=== PATIENT | female | born 1985 | race Two or more races ===

== ENCOUNTER 2023-11-10 17:25 | Emergency (ER) | payer MEDICAID ==
[~2023-11-10] VITALS: Ht 165.1 cm; Wt 62.8 kg
[2023-11-10 19:23] LABS: Basophils # (auto) 0 10 ^3/uL (0-0.2); Basophils % (auto) 0.6 % (0.0-2.0); Eosinophils # (auto) 0.2 10 ^3/uL (0-0.8); Eosinophils % (auto) 4.9 % (0.0-7.0); Hematocrit 43.2 % (36.0-46.0); Hemoglobin 14.4 g/dL (12.2-16.2); Lymphocytes # (auto) 0.9 10 ^3/uL (0.4-5.4); Lymphocytes % (auto) 21.8 % (10.0-50.0); Mean Corpuscular Hemoglobin 29.9 pg (28.0-32.0); Mean Corpuscular Hgb Conc. 33.4 g/dL (32.0-36.0); Mean Corpuscular Volume 89.5 fL (80.0-100.0); Monocytes # (auto) 0.6 10 ^3/uL (0-1.3); Neutrophils # (auto) 2.3 10 ^3/uL (1.6-8.6); Neutrophils % (auto) 57.7 % (37.0-80.0); Nucleated Red Blood Cells % 0.5 %; Red Blood Cells 4.83 10^6/uL (4.0-5.20); Red Cell Distribution Width 13.8 % (11.8-14.3); White Blood Cell 3.9 10^3/uL (4.4-10.8)
[2023-11-10 19:36] LABS: Alanine Aminotransferase 24 U/L (7-40); Albumin 4.6 g/dL (3.2-4.8); Alkaline Phosphatase 73 U/L (46-116); Anion Gap 5 (5-15); Aspartate Aminotransferase 23 U/L (13-40); BUN/Creatinine Ratio 19.6 (10.0-20.0); Blood Urea Nitrogen 11 mg/dL (9-23); Calcium 8.8 mg/dL (8.7-10.4); Carbon Dioxide 27 mmol/L (20-30); Chloride 107 mmol/L (98-107); Glucose 94 mg/dL (74-106); Potassium 3.8 mmol/L (3.5-5.1); Sodium 139 mmol/L (136-145)
[2023-11-10 19:37] LABS: Bilirubin, Total 0.6 mg/dL (0.2-1.0); Total Protein 7.3 g/dL (5.7-8.2)
[2023-11-10] MEDS ORDERED: ZOFR4T PO (19:54)
[2023-11-10] MEDS ORDERED: LOP2C PO (19:54)
[2023-11-10 19:58] VITALS: TEMP 98
[2023-11-10] MEDS: SODIUM CHLORIDE 0.9% 1,000 ML IV ONE (20:00)
[2023-11-10] MEDS: LOPERAMIDE HCL 2 MG CAP/TAB PO ONE (20:01)
[2023-11-10] MEDS: ONDANSETRON HCL 4 MG/2 ML VIAL IV ONE (20:11)
[2023-11-10 20:46] VITALS: BP 108/73; PULSE 80; RESP 17; O2SAT 97
== END 2023-11-10 20:47 | disposition home or self-care (01) ==
LOC: ER 17:25
DX: K52.9 Noninfective gastroenteritis and colitis, unspecified (principal); R51.9 Headache, unspecified
CPT/HCPCS: 36415; 80053; 85025; 96361; 96374; 99283; J2405; J7030

== ENCOUNTER 2024-03-11 19:17 | Emergency (ER) | payer MEDICAID ==
[~2024-03-11] VITALS: Ht 160 cm; Wt 55.0 kg
[~2024-03-11 19:17] MED LIST: LOP2C PO; ZOFR4T PO
[2024-03-11 20:20] LABS: Basophils # (auto) 0 10 ^3/uL (0-0.2); Basophils % (auto) 0.1 % (0.0-2.0); Eosinophils # (auto) 0 10 ^3/uL (0-0.8); Hemoglobin 9.6 g/dL (12.2-16.2); Lymphocytes # (auto) 0.2 10 ^3/uL (0.4-5.4); Lymphocytes % (auto) 1.5 % (10.0-50.0); Mean Corpuscular Hgb Conc. 33.2 g/dL (32.0-36.0); Mean Corpuscular Volume 90.4 fL (80.0-100.0); Monocytes # (auto) 0.7 10 ^3/uL (0-1.3); Monocytes % (auto) 5.6 % (0.0-12.0); Neutrophils % (auto) 92.8 % (37.0-80.0); Red Blood Cells 3.21 10^6/uL (4.0-5.20); Red Cell Distribution Width 14.1 % (11.8-14.3); White Blood Cell 11.8 10^3/uL (4.4-10.8)
[2024-03-11 20:40] VITALS: PULSE 88; RESP 28; O2SAT 96
[2024-03-11 20:45] LABS: Alanine Aminotransferase 187 U/L (7-40); Albumin 3.3 g/dL (3.2-4.8); Alkaline Phosphatase 52 U/L (46-116); Anion Gap 10 (5-15); Aspartate Aminotransferase 316 U/L (13-40); BUN/Creatinine Ratio 12.7 (10.0-20.0); Blood Urea Nitrogen 7 mg/dL (9-23); Calcium 8.3 mg/dL (8.7-10.4); Carbon Dioxide 19 mmol/L (20-30); Chloride 113 mmol/L (98-107); Glucose 142 mg/dL (74-106); Potassium 4.4 mmol/L (3.5-5.1); Sodium 142 mmol/L (136-145)
[2024-03-11] MEDS: ONDANSETRON HCL 4 MG/2 ML VIAL IV ONE (20:45)
[2024-03-11 20:46] LABS: Bilirubin, Total 0.6 mg/dL (0.2-1.0); Total Protein 5.1 g/dL (5.7-8.2)
[2024-03-11] MEDS: SODIUM CHLORIDE 0.9% 500 ML IVB ONE (20:46)
[2024-03-11] MEDS: SODIUM CHLORIDE 0.9% 1,000 ML IV ONE (23:06)
[2024-03-11] MEDS: PIPERACILLIN-TAZO 4.5GM 100 ML IV ONE (23:08)
[2024-03-12] MEDS: SODIUM CHLORIDE 0.9% 1,000 ML IV ONE ×2 (00:06→01:51)
[2024-03-12 05:43] VITALS: BP 95/67; PULSE 67; RESP 19; TEMP 97.7; O2SAT 100
== END 2024-03-12 06:04 | disposition short-term general hospital (02) ==
LOC: EDBD 19:17 → ER 19:17
DX: I95.9 Hypotension, unspecified (principal); D64.9 Anemia, unspecified; R74.02 Elevation of levels of lactic acid dehydrogenase [LDH]; R53.1 Weakness; Z98.84 Bariatric surgery status; Z79.899 Other long term (current) drug therapy
CPT/HCPCS: 36415; 71250; 74176; 80053; 83605; 84484; 85025; 93005; 96361; 96365; 96375; 99285; J2405; J2543; J7030; J7040

== ENCOUNTER 2024-07-11 08:46 | Inpatient (IN) | payer MEDICAID ==
[~2024-07-11] VITALS: Ht 162.6 cm; Wt 71.0 kg
[~2024-07-11 08:46] MED LIST changes: -LOP2C PO; +LOPE2CAP16 PO
[2024-07-11] MEDS: KETOROLAC TROMETH 30 MG/ML 1ML VIAL IV ONE (09:00)
[2024-07-11] MEDS: SODIUM CHLORIDE 0.9% 1,000 ML IV ONE (09:00)
--- NOTE | 2024-07-11 09:06 | ED.PDOC ---
General HPI Comments 39y F who presents to the ED for chief complaint of vaginal pain. Pt states she has been having lower pelvic and vaginal pain since earlier this AM at approx 0700. Pt states the pain is "15/10", constant, with no associated exacerbating or relieving factors. Pt has associated nausea and body aches and chills but denies vomiting, diarrhea, fever, cough, chills, headache or dizziness. Pt states her pain started after using restroom earlier this AM after voiding. Pt denies any vaginal discharge. Pt otherwise denies any other symptoms at this time. Chief Complaint: Pelvic Pain Time Seen by MD: 09:04 Primary Care Provider: DARBY Hatfield notes: Medications, Allergies Allergies: Coded Allergies: NO KNOWN ALLERGIES (Unverified , 11/10/23) Home Meds Active Scripts Loperamide Hcl (Imodium) 2 Mg Cp, 2 MG PO TID for 7 Days, #21 CAP Prov:LILIANA MILTON MD 11/10/23 Ondansetron Odt 4MG Tab (ZOFRAN PO) 4 Mg Tb, 4 MG PO TID for 7 Days, #21 TAB ODT TAB-DISSOLVE IN MOUTH, THEN SWALLOW Prov:LILIANA MILTON MD 11/10/23 Information Source: Patient, Spouse Mode of Arrival: Ambulatory Brought in by: spouse Past Medical History PAST MEDICAL HISTORY: Denies Surgical History: SENIOR RESEARCH ASSOCIATE History: No Pertinent SENIOR RESEARCH ASSOCIATE History Family History Family History: Unknown Social History Smoker: Non-Smoker Alcohol: Denies ETOH Use Drugs: Denies Drug Use Lives In: Home Constitutional: denies: chills, diaphoresis, fatigue, fever, malaise, sweats, weakness, others EENTM: denies: blurred vision, double vision, ear bleeding, ear discharge, ear drainage, ear pain, ear ringing, eye pain, eye redness, hearing loss, mouth pain, mouth swelling, nasal discharge, nose bleeding, nose congestion, nose pain, photophobia, tearing, throat pain, throat swelling, voice changes, others Respiratory: denies: cough, hemoptysis, orthopnea, SOB at rest, shortness of breath, SOB with excertion, stridor, wheezing, others Cardiovascular: denies: chest pain, dizzy spells, diaphoresis, Dyspnea on exertion, edema, irregular heart beat, left arm pain, lightheadedness, palpitations, PND, syncope, others Gastrointestinal: reports: abdominal pain; denies: abdomen distended, blood streaked bowels, constipated, diarrhea, dysphagia, difficulty swallowing, hematemesis, melena, nausea, poor appetite, poor fluid intake, rectal bleeding, rectal pain, vomiting, others Genitourinary: reports: others (pelvic pain); denies: abnormal vagina bleeding, burning, dyspareunia, dysuria, flank pain, frequency, hematuria, incontinence, pain, , vagina discharge, urgency Neurological: denies: dizziness, fainting, headache, left sided numbness, left sided weakness, numbness, paresthesia, pre-existing deficit, right sided numbness, right sided weakness, seizure, speech problems, tingling, tremors, weakness, others Musculoskeletal: denies: back pain, gout, joint pain, joint swelling, muscle pain, muscle stiffness, neck pain, others Integumetry: denies: bruises, change in color, change in hair/nails, dryness, laceration, lesions, lumps, rash, wounds, others Allergic/Immunocompromised: denies: Difficulty Healing, Frequent Infections, Hives, Itching, others Hematologic/Lymphatic: denies: anemia, blood clots, easy bleeding, easy bruising, swollen glands, others Endocrine: denies: excessive hunger, excessive sweating, excessive thirst, excessive urination, flushing, intolerance to cold, intolerance to heat, unexplained weight gain, unexplained weight loss, others Psychiatric: denies: anxiety, bipolar disorder, depression, hopeless, panic disorder, schizophrenia, sleepless, suicidal, others All Other Systems: Reviewed and Negative Physical Exam General Appearance: Moderate Distress, Normal HEENT: Normal ENT Inspection, Pharynx Normal, TMs Normal Neck: Full Range of Motion, Non-Tender, Normal, Normal Inspection Respiratory: Chest Non-Tender, Lungs Clear, No Accessory Muscle Use, No Respiratory Distress, Normal Breath Sounds Cardiovascular: No Edema, No JVD, No Murmur, No Gallop, Normal Peripheral Pulses, Regular Rate/Rhythm Breast Exam: Deferred Gastrointestinal: Suprapubic Genitalia: Deferred Pelvic: Deferred Rectal: Deferred Extremities: No calf tenderness, Normal capillary refill, Normal inspection, Normal range of motion, Non-tender, No pedal edema Musculoskeletal : Apperance: Normal Neurologic: Alert, emergency management coordinator II-XII nml as Tested, No Motor Deficits, Normal Affect, Normal Mood, No Sensory Deficits Cerebellar Function: Normal Reflexes: Normal Skin: Dry, Normal Color, Warm Peripheral Pulses: 3+ Radial (R), 3+ Radial (L) Lymphatic: No Adenopathy Was a procedure done? Was a procedure done?: No Differential Diagnosis Kidney stone (Female): Cholelithiasis, DJD, Musculoskeletal pain, Ovarian torsion, Pancreatitis, Strain, Urolithiasis Urinary Problem (Female): PID, Pyelonephritis, Urinary retention, UTI X-Ray, Labs, Meds, VS Vital Signs Date Time Temp Pulse Resp B/P (MAP) Pulse Ox O2 Delivery O2 Flow Rate FiO2 07/11/24 14:22 63 18 92/53 (66) 97 07/11/24 13:05 69 18 97/61 (73) 100 07/11/24 11:21 64 18 107/69 (82) 98 07/11/24 10:02 61 18 98 Room Air* 0 21 07/11/24 10:00 98.1 61 18 108/67 (81) 98 98.1 07/11/24 08:50 97.9 79 18 131/70 (90) 100 Lab Test 07/11/24 09:20 07/11/24 09:01 Range/Units Urine Color Light-yellow Yellow Urine Clarity Clear Clear Urine pH 6.0 5.0-9.0 Urine Specific [place] 1.016 1.001-1.035 Urine Protein Negative Negative Urine Ketones Negative Negative Urine Blood Negative Negative /uL Urine Nitrite Negative Negative Urine Bilirubin Negative Negative Urine Urobilinogen Normal Negative mg/dL Urine Leukocyte Esterase Negative Negative /uL Urine RBC 1 0 - 4 /hpf Urine WBC None seen 0 - 5 /hpf Urine Squamous Epithelial Cells Few <5 /hpf Urine Bacteria None seen None Seen /hpf Urine Glucose Normal Normal mg/dL White Blood Count 4.4 4.4-10.8 10^3/uL Red Blood Count 4.38 4.0-5.20 10^6/uL Hemoglobin 13.3 12.2-16.2 g/dL Hematocrit 39.1 36.0-46.0 % Mean Corpuscular Volume 89.2 80.0-100.0 fL Mean Corpuscular Hemoglobin 30.3 28.0-32.0 pg Mean Corpuscular Hemoglobin Concent 33.9 32.0-36.0 g/dL Red Cell Distribution Width 14.1 11.8-14.3 % Platelet Count 276 140-450 10^3/uL Mean Platelet Volume 8.8 6.9-10.8 fL Neutrophils (%) (Auto) 52.0 37.0-80.0 % Lymphocytes (%) (Auto) 33.2 10.0-50.0 % Monocytes (%) (Auto) 7.8 0.0-12.0 % Eosinophils (%) (Auto) 6.4 0.0-7.0 % Basophils (%) (Auto) 0.6 0.0-2.0 % Neutrophils # (Auto) 2.3 1.6-8.6 10 ^3/uL Lymphocytes # (Auto) 1.5 0.4-5.4 10 ^3/uL Monocytes # (Auto) 0.3 0-1.3 10 ^3/uL Eosinophils # (Auto) 0.3 0-0.8 10 ^3/uL Basophils # (Auto) 0 0-0.2 10 ^3/uL Nucleated Red Blood Cells 0.0 % Sodium Level 138 136-145 mmol/L Potassium Level 4.1 3.5-5.1 mmol/L Chloride Level 106 98-107 mmol/L Carbon Dioxide Level 27 20-31 mmol/L Anion Gap 5 5-15 Blood Urea Nitrogen 13 9-23 mg/dL Creatinine 0.69 0.550-1.02 mg/dL Glomerular Filtration Rate Calc 112 >90 mL/min BUN/Creatinine Ratio 18.8 10.0-20.0 Serum Glucose 83 74-106 mg/dL Calcium Level 9.7 8.7-10.4 mg/dL Current Medications Medications (Trade) Dose Ordered Sig/David Route Start Time Stop Time Status Last Admin Ketorolac Tromethamine (Toradol Injection) 30 mg ONCE ONCE IV 07/11/24 09:00 07/11/24 09:01 DC 07/11/24 09:00 Sodium Chloride 1,000 ml @ 1,000 mls/hr Q1H ONCE IV 07/11/24 09:00 07/11/24 09:59 DC 07/11/24 09:00 Ondansetron HCl (Zofran) 4 mg ONCE ONCE IV 07/11/24 11:45 07/11/24 12:16 DC 07/11/24 11:43 Acetaminophen/ Hydrocodone Bitart ([place] 10/325MG Tab) 1 tab ONCE ONCE PO 07/11/24 13:00 07/11/24 13:01 DC 07/11/24 13:00 Ondansetron HCl (Zofran) 4 mg ONCE ONCE IV 07/11/24 13:30 07/11/24 13:31 DC 07/11/24 13:33 Ceftriaxone Sodium 50 ml @ 100 mls/hr ONCE ONCE IV 07/11/24 13:30 07/11/24 13:59 DC 07/11/24 13:42 Metronidazole 100 ml @ 100 mls/hr ONCE ONCE IV 07/11/24 13:30 07/11/24 14:29 DC 07/11/24 13:46 PROCEDURE(s): ABPL - CT AB PEL WO CON-NO ORAL OR IV IMPRESSION: 1. Few abnormal loops of small bowel in the anterior pelvis could represent partial small bowel obstruction or enteritis. Clinical correlation and continued follow-up is recommended. Consider further evaluation with CT of the abdomen and pelvis with contrast. 2. No definite ovarian cyst identified. Consider further evaluation with pelvic ultrasound. Patient alert. Complaining of abdominal pain. Mostly in the suprapubic region. 06/13. Possibly kidney stone. Was given Toradol. Establish intravenous access. Was given Zofran. Continues to have abdominal pain. CT scan reviewed from previous visit. Unknown why she is having so much pain. Possibly ovary. Explained to the patient treatment plan. CT scan of the abdomen shows possible small bowel obstruction versus enteritis. Establish intravenous access. Was given fluids. Was given Rocephin. Was given Flagyl. Continue cardiac monitoring. Time of 1ST Reevaluation: 09:35 Reevaluation 1ST: Unchanged Patient Education/Counseling: Diagnosis, Treatment Family Education/Counseling: Diagnosis, Treatment Departure 1 Departure Time of Disposition: 12:04 Impression: Primary Impression: Acute abdominal pain Disposition: ADMITTED INPATIENT Admit to: Med Surg Condition: Guarded Critical Care Note Critical Care Time?: Yes (45 min-critical care time only) Stability Stability form required: No Heart Score Heart Score: Heart Score Response (Comments) Value History N/A 0 EKG N/A 0 Age N/A 0 Risk Factors N/A 0 Troponin N/A 0 Total 0 I personally scribed for SONIA MEDELLIN MD ([email or web address]) on 07/11/24 at 09:06. Electronically submitted by Paulo Gamez ([email or web address]). I personally scribed for SONIA MEDELLIN MD ([email or web address]) on 07/11/24 at 14:28. Electronically submitted by Paulo Gamez ([email or web address]). SONIA MEDELLIN MD Jul 11, 2024 09:06
[2024-07-11 09:44] LABS: Urine Bacteria None Seen /hpf (None Seen); Urine WBC None Seen /hpf (0 - 5)
[2024-07-11 09:50] LABS: Basophils # (auto) 0 10 ^3/uL (0-0.2); Basophils % (auto) 0.6 % (0.0-2.0); Eosinophils # (auto) 0.3 10 ^3/uL (0-0.8); Eosinophils % (auto) 6.4 % (0.0-7.0); Hematocrit 39.1 % (36.0-46.0); Hemoglobin 13.3 g/dL (12.2-16.2); Lymphocytes # (auto) 1.5 10 ^3/uL (0.4-5.4); Lymphocytes % (auto) 33.2 % (10.0-50.0); Mean Corpuscular Hemoglobin 30.3 pg (28.0-32.0); Mean Corpuscular Hgb Conc. 33.9 g/dL (32.0-36.0); Mean Corpuscular Volume 89.2 fL (80.0-100.0); Monocytes # (auto) 0.3 10 ^3/uL (0-1.3); Monocytes % (auto) 7.8 % (0.0-12.0); Neutrophils # (auto) 2.3 10 ^3/uL (1.6-8.6); Platelet Count (auto) 276 10^3/uL (140-450); Red Blood Cells 4.38 10^6/uL (4.0-5.20); Red Cell Distribution Width 14.1 % (11.8-14.3); White Blood Cell 4.4 10^3/uL (4.4-10.8)
[2024-07-11 09:57] LABS: Urine Blood Negative /uL (Negative); Urine Clarity Clear (Clear); Urine Color Light-Yellow (Yellow); Urine Protein, UAD Negative (Negative); Urine Specific Gravity 1.016 (1.001-1.035); Urine Urobilinogen Normal (Negative)
[2024-07-11 10:02] VITALS: PULSE 61; RESP 18; O2SAT 98
[2024-07-11 10:05] LABS: Chloride 106 mmol/L (98-107); Potassium 4.1 mmol/L (3.5-5.1); Sodium 138 mmol/L (136-145)
[2024-07-11 10:06] LABS: Anion Gap 5 (5-15); Calcium 9.7 mg/dL (8.7-10.4); Carbon Dioxide 27 mmol/L (20-31)
[2024-07-11 10:11] LABS: BUN/Creatinine Ratio 18.8 (10.0-20.0); Blood Urea Nitrogen 13 mg/dL (9-23); Glucose 83 mg/dL (74-106)
[2024-07-11] MEDS: ONDANSETRON HCL 4 MG/2 ML VIAL IV ONE ×2 (11:43→13:33)
[2024-07-11] MEDS: HYDROcodone-ACET 10/325MG TAB PO ONE (13:00)
--- NOTE | 2024-07-11 13:05 | DVH ---
Exam: CT CT AB PEL WO CON-NO ORAL OR IV History: ovary Comparison Study: CT CHST AB PEL WO CON-NO IV/ORAL on DOS: 03/11/24 Technique: Multidetector spiral CT of the abdomen and pelvis was performed from lung bases to pubic symphysis. Imaging was performed without IV contrast. Axial, coronal and sagittal multiplanar reform ats were obtained from the axial data set by the technologist. Radiation dose : Abdomen/Pelvis: CTDIvol 8 mGy, DLP 401.3 mGy*cm. Findings: Evaluation of solid organs is limited due to lack of intravenous contrast use. Lung Bases: No acute or significant lung base finding. Normal heart size. No pleural or pericardial effusion. Liver: The liver is normal in size. No focal lesions. Gallbladder and biliary Tree: Gallbladder is surgically absent. Spleen: Unremarkable Pancreas: The pancreas is grossly normal in appearance. Adrenal Glands: Unremarkable Kidneys: Kidneys are grossly normal without calculi or hydronephrosis. Bladder: Grossly unremarkable for degree of distention. Bowel: Postsurgical changes in the stomach. Few abnormal loops of small bowel in the anterior pelvis which are dilated with wall thickening and air-fluid levels. Normal appendix is visualized in the ri ght lower quadrant without findings of appendicitis. Ascites: Trace free fluid in the pelvis. Lymphadenopathy: No mesenteric, retroperitoneal or periportal lymphadenopathy. Abdominal wall and Mesentery: Unremarkable. Vasculature: The visualized abdominal aorta is normal in size and caliber. Evaluation of abdominal a nd pelvic vessels is limited due to lack of intravenous contrast. Pelvic Organs: Unremarkable Musculoskeletal: No aggressive focal bony lesions, acute fractures or dislocation. IMPRESSION: 1. Few abnormal loops of small bowel in the anterior pelvis could represent partial small bowel obstr uction or enteritis. Clinical correlation and continued follow-up is recommended. Consider further evaluation with CT of the abdomen and pelvis with contrast. 2. No definite ovarian cyst identified. Consider further evaluation with pelvic ultrasound. Radiation optimization: All CT scans at this facility use at least one of these dose optimization christelle hniques: Automated exposure control mA and/or kV adjustment per patient size (includes targeted exams where dose is matched to clinical indication) or iterative reconstruction. HS:Y
[2024-07-11] MEDS: cefTRIAXone 1GM/50ML D5W 50 ML IV ONE (13:42)
[2024-07-11] MEDS: metroNIDAZOLE 500MG/100ML 100 ML IV ONE (13:46)
[2024-07-11] MEDS: PANTOPRAZOLE 40 MG/10 ML VIAL INJ IV SCH (14:49)
[2024-07-11] MEDS: ONDANSETRON HCL 4 MG/2 ML VIAL IV PRN (16:35)
--- NOTE | 2024-07-11 16:59 | DVHHP2 ---
History of Present Illness Reason for Visit: Abdominal pain History of Present Illness 39-year-old female presented to the ED with chief complaint of lower abdominal pain, patient states the pain is 10/10, constant with nothing that exacerbates or relieves it. Patient also reports nausea and body aches and chills, she denies vomiting, diarrhea, fever, cough, chills, headache or dizziness. Patient reports feeling the pain after voiding. Patient states recently she was constipated for 7 days, patient states it was very hard to have a bowel movement and she had to try different things to relieve it, prune juice, MiraLax until she finally had a bowel movement 2 days ago. Patient has jeronimo able to to eat nor berto since then, it was only today patient came nauseas. Patient initially described the pain as being vaginal but states her lower abdomen feels like it is being "pulled down" towards her pelvis. CT abdomen/pelvis shows possible small bowel obstruction versus enteritis, patient was started on antibiotics, IV fluids, GI consult placed. Patient was admitted for further evaluation medical management. Past Medical History Denies Past Surgical History , gastric bypass, tummy reduction, tubal ligation Family History Reviewed noncontributory to the management of this case Smoke: No ALCOHOL: none Drugs: None Lives: with Family Review of Systems Constitutional: No: Fever, Chills, Sweats, Weakness, Malaise, Other Eyes: No: Pain, Vision change, Conjunctivae inflammation, Eyelid inflammation, Other, Redness ENT: No: Ear pain, Ear discharge, Nose pain, Nose discharge, Nose congestion, Mouth pain, Mouth swelling, Throat pain, Throat swelling, Other Respiratory: No: Cough, Dry, Shortness of breath, SOB with excertion, Wheezing, Hemoptysis, Pleuritic Pain, Sputum, Wheezing, Other Cardiovascular: No: Chest Pain, Palpitations, Orthopnea, Paroxysmal Noc. Dyspnea, Edema, Lt Headedness, Other Gastrointestinal: Abdominal Pain, Constipation; No: Nausea, Vomiting, Diarrhea, Melena, Hematochezia, Other Genitourinary: No Dysuria, No Frequency, No Incontinence, No Hematuria, No Retention, No Other Musculoskeletal: No: other, neck pain, shoulder pain, arm pain, back pain, hand pain, leg pain, foot pain Skin: No: Rash, Lesions, Jaundice, Bruising, Other Neurological: No: Weakness, Numbness, Incoordination, Change in speech, Confusion, Seizures, Other Allergies: Coded Allergies: NO KNOWN ALLERGIES (Unverified , 11/10/23) Medications Current Medications Medications Dose Ordered Sig/David Route Start Time Stop Time Status Last Admin Dose Admin Ondansetron HCl 4 mg Q4HP PRN IV 07/11/24 14:45 07/11/24 16:35 4 MG Morphine Sulfate 2 mg Q4HPRN PRN IV 07/11/24 14:45 Pantoprazole Sodium 40 mg DAILY IV 07/11/24 14:45 07/11/24 14:49 40 MG Exam Vital Signs Vital Signs Date Time Temp Pulse Resp B/P (MAP) Pulse Ox O2 Delivery O2 Flow Rate FiO2 07/11/24 16:40 98.8 69 18 107/63 (78) 98 98.8 07/11/24 10:02 Room Air* 0 21 General Appearance: Alert, Oriented X3, Cooperative, No acute distress HEENT: Atraumatic, PERRLA, EOMI, Mucous membr. moist/pink Respiratory: Clear to auscultation, Normal air movement Cardiovascular: Regular rate, Normal S1, Normal S2 Abdominal: Normal bowel sounds, Soft, No hepatospenomegaly, No masses, Other (Lower Abdomen tender to palpation) Extremities: No clubbing, No cyanosis, No edema, Normal pulses, No tenderness/swelling Skin: No rashes, No breakdown, No significant lesion Neuro: Normal gait, Normal speech, Strength at 5/5 X4 ext, Normal tone, Sensation intact, Cranial nerves 3-12 NL, Reflexes 2+ Psych/Mental Status: Mental status NL, Mood NL Labs/Xrays Labs, imaging and ED notes reviewed Labs Test 07/11/24 09:20 07/11/24 09:01 Range/Units Urine Color Light-yellow Yellow Urine Clarity Clear Clear Urine pH 6.0 5.0-9.0 Urine Specific [place] 1.016 1.001-1.035 Urine Protein Negative Negative Urine Ketones Negative Negative Urine Blood Negative Negative /uL Urine Nitrite Negative Negative Urine Bilirubin Negative Negative Urine Urobilinogen Normal Negative mg/dL Urine Leukocyte Esterase Negative Negative /uL Urine RBC 1 0 - 4 /hpf Urine WBC None seen 0 - 5 /hpf Urine Squamous Epithelial Cells Few <5 /hpf Urine Bacteria None seen None Seen /hpf Urine Glucose Normal Normal mg/dL White Blood Count 4.4 4.4-10.8 10^3/uL Red Blood Count 4.38 4.0-5.20 10^6/uL Hemoglobin 13.3 12.2-16.2 g/dL Hematocrit 39.1 36.0-46.0 % Mean Corpuscular Volume 89.2 80.0-100.0 fL Mean Corpuscular Hemoglobin 30.3 28.0-32.0 pg Mean Corpuscular Hemoglobin Concent 33.9 32.0-36.0 g/dL Red Cell Distribution Width 14.1 11.8-14.3 % Platelet Count 276 140-450 10^3/uL Mean Platelet Volume 8.8 6.9-10.8 fL Neutrophils (%) (Auto) 52.0 37.0-80.0 % Lymphocytes (%) (Auto) 33.2 10.0-50.0 % Monocytes (%) (Auto) 7.8 0.0-12.0 % Eosinophils (%) (Auto) 6.4 0.0-7.0 % Basophils (%) (Auto) 0.6 0.0-2.0 % Neutrophils # (Auto) 2.3 1.6-8.6 10 ^3/uL Lymphocytes # (Auto) 1.5 0.4-5.4 10 ^3/uL Monocytes # (Auto) 0.3 0-1.3 10 ^3/uL Eosinophils # (Auto) 0.3 0-0.8 10 ^3/uL Basophils # (Auto) 0 0-0.2 10 ^3/uL Nucleated Red Blood Cells 0.0 % Sodium Level 138 136-145 mmol/L Potassium Level 4.1 3.5-5.1 mmol/L Chloride Level 106 98-107 mmol/L Carbon Dioxide Level 27 20-31 mmol/L Anion Gap 5 5-15 Blood Urea Nitrogen 13 9-23 mg/dL Creatinine 0.69 0.550-1.02 mg/dL Glomerular Filtration Rate Calc 112 >90 mL/min BUN/Creatinine Ratio 18.8 10.0-20.0 Serum Glucose 83 74-106 mg/dL Calcium Level 9.7 8.7-10.4 mg/dL Assessment/Plan Assessment/Plan Abdominal pain, secondary to possible small-bowel obstruction versus enteritis Admit to medical/surgical CT abdomen/pelvis shows possible small bowel obstruction versus enteritis. Consult GI On antibiotics IV fluids given Tolerating clear liquids Zofran p.r.n. nausea Morphine p.r.n. pain Monitor a.m. labs FEN/PPX GI prophylaxis-Protonix VTE prophylaxis not indicated Clear liquids IV fluids Plan discussed with: Patient My Orders Orders - KRISTEN POON Procedure Category Date Status Time * Gi Dvh [employer]reoty[employer] Apprentice CONS 07/11/24 Transmitted 14:35 Admit ADMIT 07/11/24 Transmitted 14:36 Code Status CODE 07/11/24 Transmitted 14:36 Vital Signs [facility] 07/11/24 In Process 14:36 Review Orders With [facility] 07/11/24 In Process Adm. 14:36 Up Ad Maria Luz TY 07/11/24 In Process 14:36 Notify Of Changes [facility] 07/11/24 In Process From Base 14:36 Advance Directive [facility] 07/11/24 In Process 14:36 Basic Metabolic Panel LAB 07/12/24 Verified 04:00 Complete Blood Count LAB 07/12/24 Verified 04:00 Patient Condition ORDERS 07/11/24 Transmitted 14:36 Allergies TY 07/11/24 In Process 14:36 Ondansetron Hcl PHA 07/11/24 In Process (Zofran) 14:45 Morphine Sulfate PHA 07/11/24 In Process Injection 14:45 Pantoprazole PHA 07/11/24 In Process (Protonix) 14:45 Date of Service: Jul 11, 2024 Billing Provider: KRISTEN POON Common Visit Codes: [id number] INP/OBS CARE (HIGH) KRISTEN POON Jul 11, 2024 16:59
[2024-07-11] MEDS: MORPHINE SULFATE INJ 2 MG/ml SYRG IV PRN (17:08)
[2024-07-11 19:50] VITALS: BP 113/71; PULSE 68; RESP 20; TEMP 98; O2SAT 97
[2024-07-11 21:00] VITALS: BP 123/65; PULSE 67; RESP 18; TEMP 98.4; O2SAT 99
[2024-07-11 21:03] VITALS: BP 123/65; PULSE 67; RESP 18; TEMP 98.4; O2SAT 99
[2024-07-11] MEDS: HYDROcodone-ACET 5/325MG TAB PO PRN (23:36)
[2024-07-12] VITALS (7 sets, daily range): BP systolic 102–135; BP diastolic 67–84; PULSE 64–100; RESP 16–20; TEMP 97.7–98.9; O2SAT 93–98
[2024-07-12 06:21] LABS: Basophils # (auto) 0 10 ^3/uL (0-0.2); Basophils % (auto) 0.2 % (0.0-2.0); Eosinophils # (auto) 0 10 ^3/uL (0-0.8); Hematocrit 39.9 % (36.0-46.0); Hemoglobin 13.5 g/dL (12.2-16.2); Lymphocytes # (auto) 0.6 10 ^3/uL (0.4-5.4); Lymphocytes % (auto) 7.1 % (10.0-50.0); Mean Corpuscular Hgb Conc. 33.8 g/dL (32.0-36.0); Mean Corpuscular Volume 88.8 fL (80.0-100.0); Monocytes # (auto) 0.4 10 ^3/uL (0-1.3); Monocytes % (auto) 4.6 % (0.0-12.0); Neutrophils # (auto) 7.8 10 ^3/uL (1.6-8.6); Neutrophils % (auto) 88.1 % (37.0-80.0); Platelet Count (auto) 279 10^3/uL (140-450); Red Blood Cells 4.49 10^6/uL (4.0-5.20); Red Cell Distribution Width 14.4 % (11.8-14.3); White Blood Cell 8.8 10^3/uL (4.4-10.8)
[2024-07-12 06:35] LABS: Anion Gap 9 (5-15); Carbon Dioxide 21 mmol/L (20-31); Chloride 109 mmol/L (98-107); Sodium 139 mmol/L (136-145)
[2024-07-12 06:37] LABS: Calcium 9.2 mg/dL (8.7-10.4)
[2024-07-12 06:41] LABS: BUN/Creatinine Ratio 20.4 (10.0-20.0); Blood Urea Nitrogen 10 mg/dL (9-23); Glucose 110 mg/dL (74-106)
--- NOTE | 2024-07-12 09:55 | DVHPN2 ---
Subjective Still complaining of abdominal pain with nausea, vomiting, and constipation Reviewed: Care Plan, H&P, Labs, Medications, Previous Orders, Radiology, Other (Surgery orders) Changes from previous H/P or p: No Changes Objective Vitals Vital Signs Date Time Temp Pulse Resp B/P (MAP) Pulse Ox O2 Delivery O2 Flow Rate FiO2 07/12/24 08:16 74 20 124/81 07/12/24 05:00 98.2 98 98.2 07/11/24 21:03 Room Air* 0 21 Intake/Output Intake and Output 07/12/24 07:00 Intake Total 2070 ml Balance 2070 ml Intake Oral 920 ml IV Total 1150 ml # Voids 2 General Appearance: Alert, Oriented X3, Cooperative, moderate distress HEENT: Atraumatic Lungs: Clear to auscultation, Normal air movement Cardiovascular: Regular rate, Normal S1, Normal S2, No murmurs Abdomen: Other (Decreased bowel sounds with diffuse tenderness and suspected rigidity) Extremities: No edema Neuro: Normal speech, Cranial nerves 3-12 NL Psych/Mental Status: Mental status NL, Mood NL Medications Current Medications Medications Dose Ordered Sig/David Route Start Time Stop Time Status Last Admin Dose Admin Ondansetron HCl 4 mg Q4HP PRN IV 07/11/24 14:45 07/11/24 20:43 4 MG Morphine Sulfate 2 mg Q4HPRN PRN IV 07/11/24 14:45 07/12/24 07:46 2 MG Pantoprazole Sodium 40 mg DAILY IV 07/11/24 14:45 07/12/24 07:50 40 MG Acetaminophen/ Hydrocodone Bitart 1 tab Q6HPRN PRN PO 07/11/24 20:45 07/12/24 05:42 1 TAB Laboratory Results Laboratory Tests 07/12/24 05:09 Chemistry Test 07/12/24 05:09 Calcium Level 9.2 mg/dL (8.7-10.4) Urinalysis Test 07/11/24 09:20 Urine Color Light-yellow (Yellow) Urine Clarity Clear (Clear) Urine pH 6.0 (5.0-9.0) Urine Specific [place] 1.016 (1.001-1.035) Urine Protein Negative (Negative) Urine Ketones Negative (Negative) Urine Blood Negative /uL (Negative) Urine Nitrite Negative (Negative) Urine Bilirubin Negative (Negative) Urine Urobilinogen Normal mg/dL (Negative) Urine Leukocyte Esterase Negative /uL (Negative) Urine RBC 1 /hpf (0 - 4) Urine WBC None seen /hpf (0 - 5) Urine Squamous Epithelial Cells Few /hpf (<5) Urine Bacteria None seen /hpf (None Seen) Urine Glucose Normal mg/dL (Normal) Labs and/or images reviewed: Labs reviewed by me, Image(s) reviewed by me Assessment/Plan Assessment/Plan A 39-year-old patient; with multiple abdominal surgeries; who presented to emergency department with abdominal pain, nausea, vomiting, and constipation. #Abdominal pain, nausea, vomiting, and constipation due to partial small bowel obstruction in the setting of multiple abdominal surgeries #Suspected ROSY; most likely vasomotor nephropathy; in the setting of GI losses Reviewed abdominal/pelvis CT and small bowel Gastrografin series Consulted surgery: Orders placed but no consultation documented; GI consulted by admitting hospitalist: Did not see the patient so will cancel Ordered NG tube to be placed and the low intermittent suction; unfortunately the patient removed the NG tube overnight so new order was placed with communication order Ordered KUB to be done after NG tube placement during the day shift Continue IV fluids Continue pain management as indicated Added Reglan to Zofran; both IV; after reviewing EKG from March, with QTc of 435 millisecond Avoid nephrotoxic agents No symptoms/signs of infectious/sepsis at this time Continue monitoring Radiology recommended pelvic ultrasound; to be done as outpatient Goals of care discussed for 20 minutes; full code Late Entry This medical document was created using an electronic medical record system with computerized dictation system. Although this document has been carefully reviewed, there might still be some phonetic and typographical errors. These areas are purely typographical due to imperfections of the software programs, and do not reflect any compromise in the patient's medical care. Plan discussed with: Patient, Other (Nurse) My Orders Orders - JORDY HERRERA MD Procedure Category Date Status Time Hepatic Panel LAB 07/12/24 Logged 09:52 Complete Blood Count LAB 07/13/24 Verified 04:00 Comprehensive LAB 07/13/24 Verified Metabolic Panel 04:00 * Surgical Consult CONS 07/12/24 Verified Date of Service: Jul 12, 2024 Billing Provider: JORDY HERRERA MD Common Visit Codes: [id number] INP/OBS CARE(HIGH) Secondary Visit Codes: [id number] CARE PLAN 30 MINUTES (20 minutes) JORDY HERRERA MD Jul 12, 2024 09:55
[2024-07-12 10:15] LABS: Albumin 4.1 g/dL (3.2-4.8); Bilirubin, Direct 0.3 mg/dL (<0.3); Bilirubin, Total 0.9 mg/dL (0.2-1.0); Total Protein 6.5 g/dL (5.7-8.2)
[2024-07-12] MEDS: GASTROGRAFIN 120 ML SOL ONE (10:21)
[2024-07-12] MEDS: MORPHINE SULFATE INJ 2 MG/ml SYRG IV ONE (10:31)
[2024-07-12] MEDS ORDERED: GABA-1250 PO (16:05)
[2024-07-12] MEDS ORDERED: CYAN100088 PO (16:05)
[2024-07-12] MEDS ORDERED: CHOLTAB11 PO (16:05)
--- NOTE | 2024-07-12 16:33 | DVH ---
Procedure: XY SMALL BOWEL SERIES-W GASTROGRA Reason for study/Clinical History: r/o obstruction Comparison Study: None available at time of dictation. Technique: Single contrast small bowel series performed. FINDINGS/IMPRESSION: Initial public health service officer view of the abdomen and pelvis appears demonstrates no acute process. Contrast is identified not within the colon by 3 hours. This represents a significant delay in small bowel transit time consistent with a partial small bowel obstruction. Repeat KUB could be obtained in 24 hours if clinically indicated.
[2024-07-12] MEDS: SODIUM CHLORIDE 0.9% 1,000 ML IV SCH (19:49)
[2024-07-12] MEDS: METOCLOPRAMIDE HCL 5MG/ml INJ 2ml VIAL IV SCH (21:30)
[2024-07-13 05:00] VITALS: BP 100/67; PULSE 76; RESP 16; TEMP 98.4; O2SAT 97
[2024-07-13 07:13] LABS: Basophils # (auto) 0 10 ^3/uL (0-0.2); Basophils % (auto) 0.1 % (0.0-2.0); Eosinophils # (auto) 0 10 ^3/uL (0-0.8); Hematocrit 42.9 % (36.0-46.0); Hemoglobin 14.2 g/dL (12.2-16.2); Lymphocytes # (auto) 0.9 10 ^3/uL (0.4-5.4); Lymphocytes % (auto) 4.7 % (10.0-50.0); Mean Corpuscular Hemoglobin 29.5 pg (28.0-32.0); Mean Corpuscular Volume 89.2 fL (80.0-100.0); Monocytes # (auto) 1.3 10 ^3/uL (0-1.3); Monocytes % (auto) 7.2 % (0.0-12.0); Platelet Count (auto) 318 10^3/uL (140-450); Red Blood Cells 4.81 10^6/uL (4.0-5.20); Red Cell Distribution Width 14.3 % (11.8-14.3); White Blood Cell 18.2 10^3/uL (4.4-10.8)
[2024-07-13 07:31] LABS: Alanine Aminotransferase 10 U/L (7-40); Alkaline Phosphatase 54 U/L (46-116); Anion Gap 8 (5-15); BUN/Creatinine Ratio 17.9 (10.0-20.0); Blood Urea Nitrogen 12 mg/dL (9-23); Calcium 9.5 mg/dL (8.7-10.4); Carbon Dioxide 21 mmol/L (20-31); Chloride 108 mmol/L (98-107); Glucose 144 mg/dL (74-106); Potassium 4.5 mmol/L (3.5-5.1); Sodium 137 mmol/L (136-145)
[2024-07-13 07:32] LABS: Albumin 4.1 g/dL (3.2-4.8); Aspartate Aminotransferase 15 U/L (13-40); Bilirubin, Total 1.1 mg/dL (0.2-1.0); Total Protein 6.8 g/dL (5.7-8.2)
[2024-07-13 08:48] VITALS: BP 105/65; PULSE 82; RESP 20; TEMP 98.7; O2SAT 96
--- NOTE | 2024-07-13 12:01 | DVHPN2 ---
Progress Note - Surgical Date Seen: Jul 13, 2024 Post op day Post op day: 0 Subjective Patient reports: No new complaints, Feels better Review of Systems: HEENT:Normal, CVS:Normal, RESPIRATORY:Normal, GI:Normal, :Normal, MSK:Normal, NEURO:Normal Objective Vital signs Vital Sign Date Time Temp Pulse Resp B/P (MAP) Pulse Ox O2 Delivery O2 Flow Rate FiO2 07/13/24 11:04 82 20 105/65 07/13/24 08:48 98.7 96 98.7 07/12/24 20:00 Room Air* 0 21 Total Intake and Output 07/12/24 07/12/24 07/13/24 15:00 23:00 07:00 Intake Total 1200 ml Output Total 1100 ml Balance -1100 ml 1200 ml Medications Current Medications Medications Dose Ordered Sig/David Route Start Time Stop Time Status Last Admin Dose Admin Ondansetron HCl 4 mg Q4HP PRN IV 07/11/24 14:45 07/13/24 11:02 4 MG Morphine Sulfate 2 mg Q4HPRN PRN IV 07/11/24 14:45 07/13/24 11:04 2 MG Pantoprazole Sodium 40 mg DAILY IV 07/11/24 14:45 07/13/24 11:02 40 MG Acetaminophen/ Hydrocodone Bitart 1 tab Q6HPRN PRN PO 07/11/24 20:45 07/12/24 05:42 1 TAB Sodium Chloride 1,000 ml @ 100 mls/hr Q10H IV 07/12/24 19:00 07/13/24 06:28 100 MLS/HR Metoclopramide HCl 5 mg Q8HR IV 07/12/24 22:00 07/13/24 06:28 5 MG Laboratory Laboratory Tests 07/13/24 05:53 Test 07/13/24 05:53 Range/Units Serum Glucose 144 H 74-106 mg/dL Examination: GENERAL:Normal, HEENT:Normal, NECK:Normal, LUNGS:Normal, CVS:Normal, ABDOMEN:Normal, MSK:Normal, SKIN:Normal, NEURO:Normal Problem List/Assessment/Plan Assessment and Plan patient denies any nausea or vomiting , states she feels alot better than last night, she also states she is passing gas and has the urge for a BM, abdomen soft, non distended, non tender patient to remain NPO, no ice or clear liquids until she has a bowel movement Dr. Shah agrees with plan Plan discussed with Plan discussed with: Patient, Other (Dr. Shah ) Visit Coding Surgery Date of Service if different f: Jul 13, 2024 Billing Provider: LOCO SHAH MD Surgery Visit Codes: [id number] - INP CONSULT <80 MIN CAROLYN ISLAS NP Jul 13, 2024 12:01
[2024-07-13 13:15] VITALS: BP 113/75; PULSE 67; RESP 67; TEMP 98.7; O2SAT 95
[2024-07-13 16:49] VITALS: BP_SYST 105; BP_SYST 112; BP_DIAS 76; PULSE 101; PULSE 74; RESP 18; RESP 20; TEMP 98.3; TEMP 98.7; O2SAT 100; O2SAT 99
--- NOTE | 2024-07-13 17:50 | DVHPN2 ---
Subjective had some nausea overnight with 2 episodes of vomiting, still distended and unable to tolerate any po Reviewed: Care Plan, H&P, Labs, Medications, Previous Orders, Radiology, Other (Surgery orders) Changes from previous H/P or p: No Changes Objective Vitals Vital Signs Date Time Temp Pulse Resp B/P (MAP) Pulse Ox O2 Delivery O2 Flow Rate FiO2 07/13/24 16:49 98.3 101 18 105/76 (86) 99 98.3 07/13/24 08:00 Room Air* 0 21 Intake/Output Intake and Output 07/13/24 05:00 Intake Total 0 ml Output Total 1100 ml Balance -1100 ml Intake Oral 0 ml Output Urine Total 600 ml Emesis 500 ml # Voids 2 General Appearance: Alert, Oriented X3, Cooperative, moderate distress HEENT: Atraumatic Lungs: Clear to auscultation, Normal air movement Cardiovascular: Regular rate, Normal S1, Normal S2, No murmurs Abdomen: Other (Decreased bowel sounds with diffuse tenderness and suspected rigidity) Extremities: No edema Neuro: Normal speech, Cranial nerves 3-12 NL Psych/Mental Status: Mental status NL, Mood NL Medications Current Medications Medications Dose Ordered Sig/David Route Start Time Stop Time Status Last Admin Dose Admin Ondansetron HCl 4 mg Q4HP PRN IV 07/11/24 14:45 07/13/24 16:02 4 MG Morphine Sulfate 2 mg Q4HPRN PRN IV 07/11/24 14:45 07/13/24 11:04 2 MG Pantoprazole Sodium 40 mg DAILY IV 07/11/24 14:45 07/13/24 11:02 40 MG Acetaminophen/ Hydrocodone Bitart 1 tab Q6HPRN PRN PO 07/11/24 20:45 07/12/24 05:42 1 TAB Sodium Chloride 1,000 ml @ 100 mls/hr Q10H IV 07/12/24 19:00 07/13/24 16:01 100 MLS/HR Metoclopramide HCl 5 mg Q8HR IV 07/12/24 22:00 07/13/24 16:02 5 MG Laboratory Results Laboratory Tests 07/13/24 05:53 Chemistry Test 07/13/24 05:53 Albumin 4.1 g/dL (3.2-4.8) Calcium Level 9.5 mg/dL (8.7-10.4) Total Protein 6.8 g/dL (5.7-8.2) LFT Test 07/13/24 05:53 Alanine Aminotransferase (ALT) 10 U/L (7-40) Alkaline Phosphatase 54 U/L (46-116) Aspartate Amino Transferase (AST) 15 U/L (13-40) Total Bilirubin 1.1 mg/dL (0.2-1.0) H Urinalysis Test 07/11/24 09:20 Urine Color Light-yellow (Yellow) Urine Clarity Clear (Clear) Urine pH 6.0 (5.0-9.0) Urine Specific [place] 1.016 (1.001-1.035) Urine Protein Negative (Negative) Urine Ketones Negative (Negative) Urine Blood Negative /uL (Negative) Urine Nitrite Negative (Negative) Urine Bilirubin Negative (Negative) Urine Urobilinogen Normal mg/dL (Negative) Urine Leukocyte Esterase Negative /uL (Negative) Urine RBC 1 /hpf (0 - 4) Urine WBC None seen /hpf (0 - 5) Urine Squamous Epithelial Cells Few /hpf (<5) Urine Bacteria None seen /hpf (None Seen) Urine Glucose Normal mg/dL (Normal) Assessment/Plan Assessment/Plan A 39-year-old patient; with multiple abdominal surgeries; who presented to emergency department with abdominal pain, nausea, vomiting, and constipation. #Abdominal pain, nausea, vomiting, and constipation due to partial small bowel obstruction in the setting of multiple abdominal surgeries #Suspected ROSY; most likely vasomotor nephropathy; in the setting of GI losses Reviewed abdominal/pelvis CT and small bowel Gastrografin series no obstruction per se will start liquid diet surgery on consult continue antiemetics Radiology recommended pelvic ultrasound; to be done as outpatient Plan discussed with: Patient My Orders Orders - ANTONI MYERS MD Procedure Category Date Status Time Clear Liq Diet DIET 07/13/24 Transmitted Lunch Date of Service: Jul 13, 2024 Billing Provider: ANTONI MYERS MD Common Visit Codes: [id number] INP/OBS CARE(HIGH) ANTONI MYERS MD Jul 13, 2024 17:50
[2024-07-13 20:00] VITALS: PULSE 92; RESP 18; O2SAT 96
[2024-07-13 21:00] VITALS: BP 111/80; PULSE 92; RESP 18; TEMP 98.4; O2SAT 96
[2024-07-14] VITALS (8 sets, daily range): BP systolic 107–117; BP diastolic 73–81; PULSE 74–89; RESP 16–18; TEMP 98.1–99.1; O2SAT 96–98
--- NOTE | 2024-07-14 10:19 | DVHPN2 ---
Subjective vomited at least 10x since yesterday, cannot keep any po Reviewed: Care Plan, H&P, Labs, Medications, Previous Orders, Radiology, Other (Surgery orders) Changes from previous H/P or p: No Changes Objective Vitals Vital Signs Date Time Temp Pulse Resp B/P (MAP) Pulse Ox O2 Delivery O2 Flow Rate FiO2 07/14/24 10:03 79 20 107/78 07/14/24 09:01 98.4 96 98.4 07/13/24 20:00 Room Air* 0 21 Intake/Output Intake and Output 07/14/24 07:00 Intake Total 3600 ml Output Total 1200 ml Balance 2400 ml Intake Oral 1200 ml IV Total 2400 ml Output Urine Total 1200 ml # Voids 2 General Appearance: Alert, Oriented X3, Cooperative, moderate distress HEENT: Atraumatic Lungs: Clear to auscultation, Normal air movement Cardiovascular: Regular rate, Normal S1, Normal S2, No murmurs Abdomen: Other (Decreased bowel sounds with diffuse tenderness and suspected rigidity) Extremities: No edema Neuro: Normal speech, Cranial nerves 3-12 NL Psych/Mental Status: Mental status NL, Mood NL Medications Current Medications Medications Dose Ordered Sig/David Route Start Time Stop Time Status Last Admin Dose Admin Ondansetron HCl 4 mg Q4HP PRN IV 07/11/24 14:45 07/14/24 10:05 4 MG Morphine Sulfate 2 mg Q4HPRN PRN IV 07/11/24 14:45 07/14/24 10:03 2 MG Pantoprazole Sodium 40 mg DAILY IV 07/11/24 14:45 07/14/24 10:01 40 MG Acetaminophen/ Hydrocodone Bitart 1 tab Q6HPRN PRN PO 07/11/24 20:45 07/12/24 05:42 1 TAB Sodium Chloride 1,000 ml @ 100 mls/hr Q10H IV 07/12/24 19:00 07/14/24 01:00 100 MLS/HR Metoclopramide HCl 5 mg Q8HR IV 07/12/24 22:00 07/14/24 05:54 5 MG Laboratory Results Laboratory Tests 07/13/24 05:53 Urinalysis Test 07/11/24 09:20 Urine Color Light-yellow (Yellow) Urine Clarity Clear (Clear) Urine pH 6.0 (5.0-9.0) Urine Specific [place] 1.016 (1.001-1.035) Urine Protein Negative (Negative) Urine Ketones Negative (Negative) Urine Blood Negative /uL (Negative) Urine Nitrite Negative (Negative) Urine Bilirubin Negative (Negative) Urine Urobilinogen Normal mg/dL (Negative) Urine Leukocyte Esterase Negative /uL (Negative) Urine RBC 1 /hpf (0 - 4) Urine WBC None seen /hpf (0 - 5) Urine Squamous Epithelial Cells Few /hpf (<5) Urine Bacteria None seen /hpf (None Seen) Urine Glucose Normal mg/dL (Normal) Assessment/Plan Assessment/Plan A 39-year-old patient; with multiple abdominal surgeries; who presented to emergency department with abdominal pain, nausea, vomiting, and constipation. #Abdominal pain, nausea, vomiting, and constipation due to partial small bowel obstruction in the setting of multiple abdominal surgeries #Suspected ROSY; most likely vasomotor nephropathy; in the setting of GI losses Reviewed abdominal/pelvis CT and small bowel Gastrografin series no obstruction per se will start liquid diet>NPO today and NGT ordered placed, she has refused this morning surgery on consult continue antiemetics Radiology recommended pelvic ultrasound; to be done as outpatient Plan discussed with: Patient My Orders Orders - ANTONI MYERS MD Procedure Category Date Status Time Clear Liq Diet DIET 07/13/24 Transmitted Lunch Basic Metabolic Panel LAB 07/15/24 Verified 05:00 Basic Metabolic Panel LAB 07/16/24 Verified 05:00 Basic Metabolic Panel LAB 07/17/24 Verified 05:00 Basic Metabolic Panel LAB 07/18/24 Verified 05:00 Basic Metabolic Panel LAB 07/19/24 Verified 05:00 Complete Blood Count LAB 07/15/24 Verified 05:00 Complete Blood Count LAB 07/16/24 Verified 05:00 Complete Blood Count LAB 07/17/24 Verified 05:00 Complete Blood Count LAB 07/18/24 Verified 05:00 Complete Blood Count LAB 07/19/24 Verified 05:00 Date of Service: Jul 14, 2024 Billing Provider: ANTONI MYERS MD Common Visit Codes: [id number] INP/OBS CARE(MOD) ANTONI MYERS MD Jul 14, 2024 10:19
--- NOTE | 2024-07-14 14:37 | DVHPN2 ---
Progress Note Date Seen: Jul 14, 2024 Medical Necessity Reason Pt with a Central, PICC or Fol: No Subjective Patient reports: Feels better Review of Systems: HEENT:Normal, CVS:Normal, RESPIRATORY:Normal, GI:Abnormal (nausea), :Normal, NEURO:Normal Objective vital signs Vital Sign Date Time Temp Pulse Resp B/P (MAP) Pulse Ox O2 Delivery O2 Flow Rate FiO2 07/14/24 12:51 99.1 80 16 117/80 (92) 97 99.1 07/14/24 08:00 Room Air* 0 21 Total Intake and Output 07/13/24 07/13/24 07/14/24 15:00 23:00 07:00 Intake Total 2000 ml 1600 ml Output Total 1200 ml Balance 800 ml 1600 ml medications Current Medications Medications Dose Ordered Sig/David Route Start Time Stop Time Status Last Admin Dose Admin Ondansetron HCl 4 mg Q4HP PRN IV 07/11/24 14:45 07/14/24 10:05 4 MG Morphine Sulfate 2 mg Q4HPRN PRN IV 07/11/24 14:45 07/14/24 10:03 2 MG Pantoprazole Sodium 40 mg DAILY IV 07/11/24 14:45 07/14/24 10:01 40 MG Acetaminophen/ Hydrocodone Bitart 1 tab Q6HPRN PRN PO 07/11/24 20:45 07/12/24 05:42 1 TAB Sodium Chloride 1,000 ml @ 100 mls/hr Q10H IV 07/12/24 19:00 07/14/24 11:00 100 MLS/HR Metoclopramide HCl 5 mg Q8HR IV 07/12/24 22:00 07/14/24 05:54 5 MG Examination: GENERAL:Normal, HEENT:Normal, NECK:Normal, LUNGS:Normal, ABDOMEN:Normal (soft, non distended), MSK:Normal, SKIN:Normal laboratory and microbiology Laboratory Tests 07/13/24 05:53 Test 07/13/24 05:53 Range/Units Serum Glucose 144 H 74-106 mg/dL Problem List/Assessment/Plan Problem List/Assessment/Plan 07/14/24 - patient states feels better today, complaint of nausea, keep NPO until bowel movement, abdomen soft, non distended, non tender, passing flatus, no bowel movement, patient to ambulate, DC narcotics Dr. Shah agrees with plan Plan discussed with: Patient, Other (Dr. Shah ) CAROLYN ISLAS SLAB LIFTING SUPERVISOR Jul 14, 2024 14:37
[2024-07-14] MEDS ORDERED: ACETAMINOPHEN 325 MG TAB PO PRN (14:45)
--- NOTE | 2024-07-14 17:58 | DVH ---
INDICATION: NG tube placement. TECHNIQUE: Multiple views of the abdomen were obtained. COMPARISON: Small bowel follow through 07/12/2024 FINDINGS: Enteric tube terminates in the plane of the stomach. Surgical clips are noted in the upper abdomen. Bowel loops are similarly prominent. There is no evidence for pneumoperitoneum. No abnormal calcifica tions noted. The lung bases are clear. The visualized osseous structures appear intact. IMPRESSION: 1. Enteric tube terminates in the plane of the stomach.
[2024-07-14 20:31] LABS: Urine Amorphous Crystal FEW /hpf (None Seen); Urine Bacteria FEW /hpf (None Seen); Urine Blood 2+ /uL (Negative); Urine Clarity Ex.Turbid (Clear); Urine Color Light-Orange (Yellow); Urine Mucus FEW (None Seen); Urine Protein, UAD 1+ (Negative); Urine Urobilinogen 2 mg/dL (Negative); Urine WBC 48 /hpf (0 - 5); Urine WBC Clumps PRESENT /hpf (None Seen); Urine pH 6.5 (5.0-9.0)
[2024-07-15] VITALS (8 sets, daily range): BP systolic 100–124; BP diastolic 59–78; PULSE 67–90; RESP 15–20; TEMP 97.1–98.2; O2SAT 93–100
[2024-07-15] MEDS: KETOROLAC TROMETH 30 MG/ML 1ML VIAL IV ONE (02:37)
[2024-07-15 04:54] LABS: Chloride 106 mmol/L (98-107); Potassium 3.8 mmol/L (3.5-5.1); Sodium 138 mmol/L (136-145)
[2024-07-15 04:55] LABS: Anion Gap 7 (5-15); Carbon Dioxide 25 mmol/L (20-31)
[2024-07-15 04:56] LABS: Basophils # (auto) 0 10 ^3/uL (0-0.2); Basophils % (auto) 0.3 % (0.0-2.0); Calcium 9.3 mg/dL (8.7-10.4); Eosinophils # (auto) 0.1 10 ^3/uL (0-0.8); Eosinophils % (auto) 0.6 % (0.0-7.0); Hematocrit 37.9 % (36.0-46.0); Hemoglobin 12.9 g/dL (12.2-16.2); Lymphocytes # (auto) 0.6 10 ^3/uL (0.4-5.4); Lymphocytes % (auto) 7.4 % (10.0-50.0); Mean Corpuscular Hgb Conc. 34.1 g/dL (32.0-36.0); Monocytes # (auto) 0.7 10 ^3/uL (0-1.3); Monocytes % (auto) 8.5 % (0.0-12.0); Neutrophils # (auto) 6.9 10 ^3/uL (1.6-8.6); Neutrophils % (auto) 83.2 % (37.0-80.0); Nucleated Red Blood Cells % 0.1 %; Platelet Count (auto) 301 10^3/uL (140-450); Red Cell Distribution Width 14.1 % (11.8-14.3); White Blood Cell 8.3 10^3/uL (4.4-10.8)
[2024-07-15 05:01] LABS: BUN/Creatinine Ratio 33.9 (10.0-20.0); Blood Urea Nitrogen 20 mg/dL (9-23); Glucose 103 mg/dL (74-106)
[2024-07-15 08:38] LABS: Hepatitis B Surface Antigen Negative (Negative)
[2024-07-15 08:59] LABS: Hepatitis C Antibody Negative (Negative)
[2024-07-15] MEDS: PANTOPRAZOLE 40 MG/10 ML VIAL INJ IV ONE (13:00)
--- NOTE | 2024-07-15 13:36 | DVHPN2 ---
Subjective Patient continues to report having suprapubic pain as well as painful urination. Reviewed: Care Plan, H&P, Labs, Medications, Previous Orders, Radiology, Other (Surgery orders) Changes from previous H/P or p: No Changes General: Per HPI Genitourinary: Dysuria Objective Vitals Vital Signs Date Time Temp Pulse Resp B/P (MAP) Pulse Ox O2 Delivery O2 Flow Rate FiO2 07/15/24 09:12 97.8 82 16 103/70 (81) 100 97.8 07/15/24 08:00 Room Air* 0 21 Intake/Output Intake and Output 07/15/24 07:00 Intake Total 1600 ml Output Total 900 ml Balance 700 ml Intake Oral 400 ml IV Total 1200 ml Gastric Drainage Total 900 ml # Voids 3 General Appearance: Alert, Oriented X3, Cooperative, moderate distress HEENT: Atraumatic Lungs: Clear to auscultation, Normal air movement Cardiovascular: Regular rate, Normal S1, Normal S2, No murmurs Abdomen: Soft, No tenderness, Other (Hypoactive bowel sounds.) Extremities: No edema Neuro: Normal speech, Sensation intact, Cranial nerves 3-12 NL Psych/Mental Status: Mental status NL, Mood NL Medications Current Medications Medications Dose Ordered Sig/David Route Start Time Stop Time Status Last Admin Dose Admin Ondansetron HCl 4 mg Q4HP PRN IV 07/11/24 14:45 07/15/24 05:45 4 MG Pantoprazole Sodium 40 mg DAILY IV 07/11/24 14:45 07/14/24 10:01 40 MG Sodium Chloride 1,000 ml @ 100 mls/hr Q10H IV 07/12/24 19:00 07/15/24 06:54 100 MLS/HR Acetaminophen 650 mg Q4HP PRN PO 07/14/24 14:45 Cancel Metoclopramide HCl 10 mg Q8HR IV 07/15/24 14:00 UNV Ceftriaxone Sodium 50 ml @ 100 mls/hr DAILY@09 IV 07/16/24 09:00 UNV Pantoprazole Sodium 40 mg DAILY IV 07/16/24 10:00 UNV Laboratory Results Laboratory Tests 07/15/24 04:14 Chemistry Test 07/15/24 04:14 Calcium Level 9.3 mg/dL (8.7-10.4) Urinalysis Test 07/14/24 20:00 Urine Color Light-orange (Yellow) Urine Clarity Ex.turbid (Clear) Urine pH 6.5 (5.0-9.0) Urine Specific [place] 1.040 (1.001-1.035) Urine Protein 1+ (Negative) H Urine Ketones 4+ (Negative) H Urine Blood 2+ /uL (Negative) H Urine Nitrite Negative (Negative) Urine Bilirubin Negative (Negative) Urine Urobilinogen 2 mg/dL (Negative) H Urine Leukocyte Esterase 1+ /uL (Negative) Urine RBC 7 /hpf (0 - 4) Urine WBC 48 /hpf (0 - 5) Urine WBC Clumps Present /hpf (None Seen) Urine Squamous Epithelial Cells Few /hpf (<5) Urine Amorphous Crystals Few /hpf (None Seen) Urine Bacteria Few /hpf (None Seen) H Urine Mucus Few (None Seen) Urine Glucose Trace mg/dL (Normal) Labs and/or images reviewed: Labs reviewed by me, Image(s) reviewed by me Assessment/Plan Assessment/Plan Impression: -small-bowel obstruction -UTI -leukocytosis Plan: -start antibiotic therapy with Rocephin -continue IV hydration with D5 half NS with 20 mEq of potassium chloride -NG tube to low intermittent suction -start PPI -repeat KUB in a.m. Total time spent with patient discussing and formulating plan of care: 35 minutes. This medical document was created using an electronic medical record system with goBalto dictation system. Although this document has been carefully reviewed, there may still be some phonetic and typographical errors. These areas are purely typographical due to imperfections of the software programs, and do not reflect any compromise in the patient's medical care. Plan discussed with: Patient, Other (RN) My Orders Orders - GIORGIO SINGH ALCOHOL RUBBER Procedure Category Date Status Time Metoclopramide PHA 07/15/24 Logged Injection (Reglan 14:00 Ceftriaxone 1gm/50ml PHA 07/16/24 Logged D5w (Rocephin) 09:00 Pantoprazole PHA 07/16/24 Logged (Protonix) 10:00 Pantoprazole PHA 07/15/24 Logged (Protonix) 13:00 Ice Chips Only TY 07/15/24 Transmitted 12:56 D5 1/2 Ns Potassium PHA 07/15/24 Transmitted 20meq 13:30 Ceftriaxone Ivpb PHA 11/11/24 Transmitted Rocephin 13:30 Date of Service: Jul 15, 2024 Billing Provider: GIORGIO SINGH NP Common Visit Codes: [id number] INP/OBS CARE(HIGH) GIORGIO SINGH NP Jul 15, 2024 13:35
--- NOTE | 2024-07-15 14:18 | DVHPN2 ---
Progress Note Date Seen: Jul 15, 2024 Medical Necessity Reason Pt with a Central, PICC or Fol: No Subjective Patient reports: No new complaints, Feels better Review of Systems: HEENT:Normal, CVS:Normal, RESPIRATORY:Normal, GI:Normal, :Normal, MSK:Normal, NEURO:Normal Objective vital signs Vital Sign Date Time Temp Pulse Resp B/P (MAP) Pulse Ox O2 Delivery O2 Flow Rate FiO2 07/15/24 09:12 97.8 82 16 103/70 (81) 100 97.8 07/15/24 08:00 Room Air* 0 21 Total Intake and Output 07/14/24 07/14/24 07/15/24 15:00 23:00 07:00 Intake Total 400 ml 1200 ml Output Total 900 ml Balance 400 ml 300 ml medications Current Medications Medications Dose Ordered Sig/David Route Start Time Stop Time Status Last Admin Dose Admin Ondansetron HCl 4 mg Q4HP PRN IV 07/11/24 14:45 07/15/24 05:45 4 MG Pantoprazole Sodium 40 mg DAILY IV 07/11/24 14:45 07/14/24 10:01 40 MG Acetaminophen 650 mg Q4HP PRN PO 07/14/24 14:45 Cancel Metoclopramide HCl 10 mg Q8HR IV 07/15/24 14:00 Ceftriaxone Sodium 50 ml @ 100 mls/hr DAILY@09 IV 07/16/24 09:00 Pantoprazole Sodium 40 mg DAILY IV 07/16/24 10:00 Potassium Chloride/Dextrose/ Sod Cl 1,000 ml @ 100 mls/hr Q10H IV 07/15/24 13:30 Phenazopyridine HCl 100 mg TID PO 07/15/24 22:00 UNV Examination: GENERAL:Normal, HEENT:Normal, NECK:Normal, LUNGS:Normal, CVS:Normal, ABDOMEN:Normal, MSK:Normal, SKIN:Normal, NEURO:Normal laboratory and microbiology Laboratory Tests 07/15/24 04:14 Test 07/15/24 04:14 Range/Units Serum Glucose 103 74-106 mg/dL Problem List/Assessment/Plan Problem List/Assessment/Plan 07/14/24 - patient states feels better today, complaint of nausea, keep NPO until bowel movement, abdomen soft, non distended, non tender, passing flatus, no bowel movement, patient to ambulate, DC narcotics Dr. Shah agrees with plan 07/15/24 abdomen soft, non distended, no pain , patient states she has bowel activity, examined by Dr. Shah , ok to DC NGT, start on clear liquids patient to ambulate Plan discussed with: Patient, Other (Dr. Shah ) CAROLYN ISLAS ELECTRONIC WARFARE LINGUIST Jul 15, 2024 14:18
[2024-07-15] MEDS: METOCLOPRAMIDE HCL 5MG/ml INJ 2ml VIAL IV SCH (14:27)
[2024-07-15] MEDS: cefTRIAXone 1GM/50ML D5W 50 ML IV ONE (14:28)
[2024-07-15] MEDS: D5W/SOD CHL 0.45%/KCL 20MEQ 1,000 ML IV SCH (16:00)
[2024-07-15] MEDS: SULFAMETHOX W/TRIMETH(800/160MG) DS TAB PO SCH (22:24)
[2024-07-15] MEDS: PHENAZOPYRIDINE HCL 100 MG TAB PO SCH (22:24)
[2024-07-16] VITALS (8 sets, daily range): BP systolic 98–138; BP diastolic 62–79; PULSE 68–94; RESP 17–19; TEMP 97.6–99; O2SAT 93–99
[2024-07-16 04:44] LABS: Basophils # (auto) 0 10 ^3/uL (0-0.2); Basophils % (auto) 0.4 % (0.0-2.0); Eosinophils # (auto) 0.2 10 ^3/uL (0-0.8); Eosinophils % (auto) 2.8 % (0.0-7.0); Hematocrit 35.9 % (36.0-46.0); Hemoglobin 12.3 g/dL (12.2-16.2); Lymphocytes # (auto) 0.9 10 ^3/uL (0.4-5.4); Lymphocytes % (auto) 16.2 % (10.0-50.0); Mean Corpuscular Hemoglobin 30.3 pg (28.0-32.0); Mean Corpuscular Hgb Conc. 34.3 g/dL (32.0-36.0); Mean Corpuscular Volume 88.2 fL (80.0-100.0); Monocytes # (auto) 0.6 10 ^3/uL (0-1.3); Monocytes % (auto) 10.3 % (0.0-12.0); Neutrophils # (auto) 4.1 10 ^3/uL (1.6-8.6); Neutrophils % (auto) 70.3 % (37.0-80.0); Platelet Count (auto) 293 10^3/uL (140-450); Red Blood Cells 4.07 10^6/uL (4.0-5.20); Red Cell Distribution Width 14.3 % (11.8-14.3); White Blood Cell 5.8 10^3/uL (4.4-10.8)
[2024-07-16 04:56] LABS: Chloride 106 mmol/L (98-107); Potassium 3.8 mmol/L (3.5-5.1); Sodium 138 mmol/L (136-145)
[2024-07-16 04:57] LABS: Anion Gap 5 (5-15); Calcium 8.9 mg/dL (8.7-10.4); Carbon Dioxide 27 mmol/L (20-31)
[2024-07-16 05:02] LABS: BUN/Creatinine Ratio 38.3 (10.0-20.0); Blood Urea Nitrogen 18 mg/dL (9-23); Glucose 120 mg/dL (74-106)
[2024-07-16] MEDS ORDERED: cefTRIAXone 1GM/50ML D5W 50 ML IV SCH (09:00)
[2024-07-16] MEDS: PANTOPRAZOLE 40 MG/10 ML VIAL INJ IV SCH (11:30)
--- NOTE | 2024-07-16 14:03 | DVHPN2 ---
Progress Note Date Seen: Jul 16, 2024 Medical Necessity Reason Pt with a Central, PICC or Fol: No Subjective Patient reports: No new complaints, Feels better Review of Systems: HEENT:Normal, CVS:Abnormal, RESPIRATORY:Normal, GI:Normal, :Normal, MSK:Normal, NEURO:Normal Objective vital signs Vital Sign Date Time Temp Pulse Resp B/P (MAP) Pulse Ox O2 Delivery O2 Flow Rate FiO2 07/16/24 08:45 98.2 85 17 98/63 (75) 96 98.2 07/16/24 07:42 Room Air* 0 21 Total Intake and Output 07/15/24 07/15/24 07/16/24 15:00 23:00 07:00 Intake Total 550 ml 1200 ml Output Total 600 ml Balance -50 ml 1200 ml medications Current Medications Medications Dose Ordered Sig/David Route Start Time Stop Time Status Last Admin Dose Admin Ondansetron HCl 4 mg Q4HP PRN IV 07/11/24 14:45 07/15/24 05:45 4 MG Acetaminophen 650 mg Q4HP PRN PO 07/14/24 14:45 Cancel Metoclopramide HCl 10 mg Q8HR IV 07/15/24 14:00 07/16/24 05:49 10 MG Pantoprazole Sodium 40 mg DAILY IV 07/16/24 10:00 07/16/24 11:30 40 MG Potassium Chloride/Dextrose/ Sod Cl 1,000 ml @ 100 mls/hr Q10H IV 07/15/24 13:30 07/16/24 02:07 100 MLS/HR Phenazopyridine HCl 100 mg TID PO 07/15/24 22:00 07/16/24 05:49 100 MG Trimethoprim/ Sulfamethoxazole 1 tab Q12HR PO 07/15/24 22:00 07/16/24 11:31 1 TAB Examination: GENERAL:Normal, HEENT:Normal, NECK:Normal, LUNGS:Normal, CVS:Normal, ABDOMEN:Normal, MSK:Normal, SKIN:Normal, NEURO:Normal laboratory and microbiology Laboratory Tests 07/16/24 04:14 Test 07/16/24 04:14 Range/Units Serum Glucose 120 H 74-106 mg/dL Problem List/Assessment/Plan Problem List/Assessment/Plan 07/14/24 - patient states feels better today, complaint of nausea, keep NPO until bowel movement, abdomen soft, non distended, non tender, passing flatus, no bowel movement, patient to ambulate, DC narcotics Dr. Shah agrees with plan 07/15/24 abdomen soft, non distended, no pain , patient states she has bowel activity, examined by Dr. Shah , ok to DC NGT, start on clear liquids patient to ambulate 07/16/24 abdomen soft, non distended, tolerating diet, denies nausea, passing gas, ok for full liquid diet, advance diet as tolerated, no surgical intervention , please recall if needed Plan discussed with: Patient, Other (Dr. Shah ) CAROLYN ISLAS CARE PROGRAM RESIDENT Jul 16, 2024 14:03
--- NOTE | 2024-07-16 14:35 | DVHDS2 ---
Discharge Summary Date of Admission Jul 11, 2024 at 14:36 Date of Discharge: Jul 16, 2024 Admitting Diagnosis Small-bowel obstruction Labs/Diagnostic Data: Laboratory Results Test 07/16/24 04:14 07/14/24 20:00 07/13/24 05:53 07/12/24 05:09 White Blood Count 5.8 10^3/uL (4.4-10.8) Red Blood Count 4.07 10^6/uL (4.0-5.20) Hemoglobin 12.3 g/dL (12.2-16.2) Hematocrit 35.9 % (36.0-46.0) Mean Corpuscular Volume 88.2 fL (80.0-100.0) Mean Corpuscular Hemoglobin 30.3 pg (28.0-32.0) Mean Corpuscular Hemoglobin Concent 34.3 g/dL (32.0-36.0) Red Cell Distribution Width 14.3 % (11.8-14.3) Platelet Count 293 10^3/uL (140-450) Mean Platelet Volume 8.5 fL (6.9-10.8) Neutrophils (%) (Auto) 70.3 % (37.0-80.0) Lymphocytes (%) (Auto) 16.2 % (10.0-50.0) Monocytes (%) (Auto) 10.3 % (0.0-12.0) Eosinophils (%) (Auto) 2.8 % (0.0-7.0) Basophils (%) (Auto) 0.4 % (0.0-2.0) Neutrophils # (Auto) 4.1 10 ^3/uL (1.6-8.6) Lymphocytes # (Auto) 0.9 10 ^3/uL (0.4-5.4) Monocytes # (Auto) 0.6 10 ^3/uL (0-1.3) Eosinophils # (Auto) 0.2 10 ^3/uL (0-0.8) Basophils # (Auto) 0 10 ^3/uL (0-0.2) Nucleated Red Blood Cells 0.0 % Sodium Level 138 mmol/L (136-145) Potassium Level 3.8 mmol/L (3.5-5.1) Chloride Level 106 mmol/L (98-107) Carbon Dioxide Level 27 mmol/L (20-31) Anion Gap 5 (5-15) Blood Urea Nitrogen 18 mg/dL (9-23) Creatinine 0.47 mg/dL (0.550-1.02) Glomerular Filtration Rate Calc 123 mL/min (>90) BUN/Creatinine Ratio 38.3 (10.0-20.0) Serum Glucose 120 mg/dL (74-106) Calcium Level 8.9 mg/dL (8.7-10.4) Urine Color Light-orange (Yellow) Urine Clarity Ex.turbid (Clear) Urine pH 6.5 (5.0-9.0) Urine Specific [place] 1.040 (1.001-1.035) Urine Protein 1+ (Negative) Urine Ketones 4+ (Negative) Urine Blood 2+ /uL (Negative) Urine Nitrite Negative (Negative) Urine Bilirubin Negative (Negative) Urine Urobilinogen 2 mg/dL (Negative) Urine Leukocyte Esterase 1+ /uL (Negative) Urine RBC 7 /hpf (0 - 4) Urine WBC 48 /hpf (0 - 5) Urine WBC Clumps Present /hpf (None Seen) Urine Squamous Epithelial Cells Few /hpf (<5) Urine Amorphous Crystals Few /hpf (None Seen) Urine Bacteria Few /hpf (None Seen) Urine Mucus Few (None Seen) Urine Glucose Trace mg/dL (Normal) Total Bilirubin 1.1 mg/dL (0.2-1.0) Aspartate Amino Transferase (AST) 15 U/L (13-40) Alanine Aminotransferase (ALT) 10 U/L (7-40) Alkaline Phosphatase 54 U/L (46-116) Total Protein 6.8 g/dL (5.7-8.2) Albumin 4.1 g/dL (3.2-4.8) Direct Bilirubin 0.3 mg/dL (<0.3) Hepatitis B Surface Antigen Negative (Negative) Hepatitis C Antibody Negative (Negative) Other Laboratory Tests 07/16/24 04:14 Brief Hx & Hospital Course: History of Present Illness 39-year-old female presented to the ED with chief complaint of lower abdominal pain, patient states the pain is 10/10, constant with nothing that exacerbates or relieves it. Patient also reports nausea and body aches and chills, she denies vomiting, diarrhea, fever, cough, chills, headache or dizziness. Patient reports feeling the pain after voiding. Patient states recently she was constipated for 7 days, patient states it was very hard to have a bowel movement and she had to try different things to relieve it, prune juice, MiraLax until she finally had a bowel movement 2 days ago. Patient has jeronimo able to to eat normally since then, it was only today patient came nauseas. Patient initially described the pain as being vaginal but states her lower abdomen feels like it is being "pulled down" towards her pelvis. CT abdomen/pelvis shows possible small bowel obstruction versus enteritis, patient was started on antibiotics, IV fluids, GI consult placed. Patient was admitted for further evaluation medical management. Course of hospitalization: Patient was started on IV hydration, made NPO. Patient had surgical consultation with subsequent NG tube placement. Patient had a tremendous amount of NG drainage. Patient underwent Gastrografin study. Patient had NG tube removed after having positive bowel sounds. She was passing gas, tolerating oral intake. Repeat urinalysis reveals UTI for which she was started on antibiotic therapy. The patient was requesting to be discharged home. The patient will be started on a bowel regimen and is okay to be discharged after having BM this afternoon. Her diet will be advanced from clear to full liquid. She will be continued on antibiotic therapy with Bactrim DS one tablet twice a day for additional five days. She will also be prescribed Colace 100 mg p.o. twice a day as needed for constipation. She was agreeable with discharge plan. All questions answered. Physical examination General: Alert and Oriented x3. No acute distress. Well-nourished. Eyes: EOMI. Anicteric. HENT: Moist mucous membranes. Lungs: Clear to auscultation bilaterally. No accessory muscle use. Cardiovascular: Regular rate and rhythm. No murmur. No JVD. Abdomen: Soft, non-tender and non-distended. No palpable masses. Extremities: No edema. Non-tender. Skin: No rashes or lesions. Warm. Neurologic: No focal neurological deficits. CN II-XII grossly intact, but not individually tested. Psychiatric: Cooperative. Appropriate mood and affect. Total time spent with patient discussing and formulating plan of care: 35 minutes. This medical document was created using an electronic medical record system with [employer] dictation system. Although this document has been carefully reviewed, there may still be some phonetic and typographical errors. These areas are purely typographical due to imperfections of the software programs, and do not reflect any compromise in the patient's medical care. Consults/Reason for consult General surgery: Small-bowel obstruction Condition at Discharge: Fair Final Diagnosis/Problems List Small-bowel obstruction Secondary Diagnosis: -UTI -leukocytosis Discharge Disposition: Home Discharge Instruct/Medications Diet: Regular Activity: No Restrictions, As Tolerated Follow Up/Referral: Follow up with PCP in 1-2 weeks and/or discharge Clinic in one week Medications: Bactrim DS one tablet twice a day for five days Colace 100 mg p.o. b.i.d. as needed for constipation x2 days 36 Discharge Statement: "Patient was advised to return to the ER or call 911 if any headaches, dizziness, shortness of breath, chest pain, abdominal pain, bleeding, fevers, or worsening of medical condition. Patient was counseled about treatment plan, medications, possible side effects, patientverbalized understanding. All questions were answered to the best of my ability. This discharge took greater then 30 minutes in planning, reviewing documentation, counseling the patient, and discussing with other team members." ASSESSMENT ASSESSMENT Assessment Small-bowel obstruction Date of Service: Jul 16, 2024 Billing Provider: GIORGIO SINGH NP Common Visit Codes: 11511-ZCZ/OBS DISCH DAY >30min GIORGIO SINGH NP Jul 16, 2024 14:35
[2024-07-16] MEDS: LACTULOSE 20Gm/30ML SOLN PO ONE (14:50)
[2024-07-16] MEDS: DOCUSATE SOD 100 MG CAP PO ONE (14:50)
[2024-07-16] MEDS ORDERED: DOCU-94 PO ×2 (15:03)
[2024-07-16] MEDS ORDERED: BACDST PO ×2 (15:03)
[2024-07-17] VITALS (7 sets, daily range): BP systolic 98–109; BP diastolic 67–75; PULSE 70–85; RESP 17–19; TEMP 36.7; O2SAT 96–100
[2024-07-17 06:49] LABS: Basophils # (auto) 0 10 ^3/uL (0-0.2); Basophils % (auto) 0.5 % (0.0-2.0); Eosinophils # (auto) 0.3 10 ^3/uL (0-0.8); Eosinophils % (auto) 5.6 % (0.0-7.0); Hematocrit 35.7 % (36.0-46.0); Hemoglobin 12.1 g/dL (12.2-16.2); Lymphocytes % (auto) 19.7 % (10.0-50.0); Mean Corpuscular Hemoglobin 30.1 pg (28.0-32.0); Mean Corpuscular Hgb Conc. 33.9 g/dL (32.0-36.0); Mean Corpuscular Volume 88.6 fL (80.0-100.0); Monocytes # (auto) 0.5 10 ^3/uL (0-1.3); Monocytes % (auto) 9.4 % (0.0-12.0); Neutrophils # (auto) 3.3 10 ^3/uL (1.6-8.6); Neutrophils % (auto) 64.8 % (37.0-80.0); Platelet Count (auto) 298 10^3/uL (140-450); Red Blood Cells 4.03 10^6/uL (4.0-5.20); Red Cell Distribution Width 14.3 % (11.8-14.3); White Blood Cell 5.1 10^3/uL (4.4-10.8)
[2024-07-17 06:51] LABS: Chloride 106 mmol/L (98-107); Sodium 137 mmol/L (136-145)
[2024-07-17 06:52] LABS: Anion Gap 8 (5-15); Calcium 8.9 mg/dL (8.7-10.4); Carbon Dioxide 23 mmol/L (20-31)
[2024-07-17 06:57] LABS: Glucose 106 mg/dL (74-106)
[2024-07-17 06:58] LABS: BUN/Creatinine Ratio 21.3 (10.0-20.0); Blood Urea Nitrogen 10 mg/dL (9-23)
[2024-07-17] MEDS ORDERED: FLEET ENEMA(ADULT) 135 ML PR ONE (12:00)
[2024-07-17] MEDS: BISACODYL 10 MG RECT SUPP PR ONE (12:58)
--- NOTE | 2024-07-17 13:37 | DVH ---
Date: 07/17/2024 12:58 PM Examination: XY KUB ABDOMEN SINGLE VIEW History: obstruction Comparison: XY KUB ABDOMEN SINGLE VIEW on DOS: 07/14/24 TECHNIQUE: Frontal views of the abdomen was obtained. FINDINGS: Dilated loops of small bowel are unchanged compared prior exam with large amount of stool visualized colon. The lung bases are unremarkable. No acute osseous abnormality identified. IMPRESSION: Dilated loops of small bowel with large amount of stool in the colon suggestive of partial small delvin l obstruction versus ileus.
--- NOTE | 2024-07-17 15:27 | DVHPN2 ---
Subjective Patient continues to report having suprapubic pain as well as painful urination. Reviewed: Care Plan, H&P, Labs, Medications, Previous Orders, Radiology, Other (Surgery orders) Changes from previous H/P or p: No Changes General: Per HPI Genitourinary: Dysuria Objective Vitals Vital Signs Date Time Temp Pulse Resp B/P (MAP) Pulse Ox O2 Delivery O2 Flow Rate FiO2 07/17/24 12:40 98.0 70 18 109/75 (86) 100 98.0 07/17/24 08:00 Room Air* 0 21 Intake/Output Intake and Output 07/17/24 07:00 Intake Total 1772 ml Balance 1772 ml Intake Oral 1072 ml IV Total 700 ml # Voids 3 General Appearance: Alert, Oriented X3, Cooperative, moderate distress HEENT: Atraumatic Lungs: Clear to auscultation, Normal air movement Cardiovascular: Regular rate, Normal S1, Normal S2, No murmurs Abdomen: Soft, No tenderness, Other Extremities: No edema Neuro: Normal speech, Sensation intact, Cranial nerves 3-12 NL Skin: Dry, Intact Psych/Mental Status: Mental status NL, Mood NL Medications Current Medications Medications Dose Ordered Sig/David Route Start Time Stop Time Status Last Admin Dose Admin Ondansetron HCl 4 mg Q4HP PRN IV 07/11/24 14:45 07/15/24 05:45 4 MG Acetaminophen 650 mg Q4HP PRN PO 07/14/24 14:45 Cancel Metoclopramide HCl 10 mg Q8HR IV 07/15/24 14:00 07/17/24 05:54 10 MG Pantoprazole Sodium 40 mg DAILY IV 07/16/24 10:00 07/17/24 08:57 40 MG Potassium Chloride/Dextrose/ Sod Cl 1,000 ml @ 100 mls/hr Q10H IV 07/15/24 13:30 07/16/24 09:30 100 MLS/HR Phenazopyridine HCl 100 mg TID PO 07/15/24 22:00 07/16/24 14:49 100 MG Trimethoprim/ Sulfamethoxazole 1 tab Q12HR PO 07/15/24 22:00 07/17/24 08:57 1 TAB Laboratory Results Laboratory Tests 07/17/24 06:00 Chemistry Test 07/17/24 06:00 Calcium Level 8.9 mg/dL (8.7-10.4) Urinalysis Test 07/14/24 20:00 Urine Color Light-orange (Yellow) Urine Clarity Ex.turbid (Clear) Urine pH 6.5 (5.0-9.0) Urine Specific [place] 1.040 (1.001-1.035) Urine Protein 1+ (Negative) H Urine Ketones 4+ (Negative) H Urine Blood 2+ /uL (Negative) H Urine Nitrite Negative (Negative) Urine Bilirubin Negative (Negative) Urine Urobilinogen 2 mg/dL (Negative) H Urine Leukocyte Esterase 1+ /uL (Negative) Urine RBC 7 /hpf (0 - 4) Urine WBC 48 /hpf (0 - 5) Urine WBC Clumps Present /hpf (None Seen) Urine Squamous Epithelial Cells Few /hpf (<5) Urine Amorphous Crystals Few /hpf (None Seen) Urine Bacteria Few /hpf (None Seen) H Urine Mucus Few (None Seen) Urine Glucose Trace mg/dL (Normal) Labs and/or images reviewed: Labs reviewed by me, Image(s) reviewed by me Assessment/Plan Assessment/Plan Impression: -small-bowel obstruction -UTI -leukocytosis Plan: -start antibiotic therapy with Rocephin -continue IV hydration with D5 half NS with 20 mEq of potassium chloride -NG tube to low intermittent suction -start PPI -DC home after BM Total time spent with patient discussing and formulating plan of care: 35 minutes. This medical document was created using an electronic medical record system with [employer] dictation system. Although this document has been carefully reviewed, there may still be some phonetic and typographical errors. These areas are purely typographical due to imperfections of the software programs, and do not reflect any compromise in the patient's medical care. Plan discussed with: Patient, Other (RN) My Orders Orders - GIORGIO SINGH NP Procedure Category Date Status Time Kub Abdomen Single XY 07/17/24 Resulted View 11:48 Discharge DISCHARGE 07/17/24 Verified 15:24 Date of Service: Jul 17, 2024 Billing Provider: GIORGIO SINGH NP Common Visit Codes: [id number] INP/OBS CARE(HIGH) GIORGIO SINGH NP Jul 17, 2024 15:27
== END 2024-07-17 19:20 | disposition home or self-care (01) | DRG 247 ==
LOC: ER 08:46 → OVERFLOW 14:36 → WEST WING 21:02
PROVIDERS: ADMIT Registered Nurse General Practice; ATTEND Nurse Practitioner Acute Care
PROC: 0D9670Z Drainage of Stomach with Drainage Device, Via Natural or Artificial Opening (ICD-10-PCS; principal; 2024-07-12)
DX: K56.600 Partial intestinal obstruction, unspecified as to cause (principal); K59.00 Constipation, unspecified; N39.0 Urinary tract infection, site not specified; Z98.84 Bariatric surgery status; Z79.899 Other long term (current) drug therapy
CPT/HCPCS: 36415; 74018; 74176; 74250; 80048; 80053; 80076; 81001; 85025; 86803; 87340; 99291; G0378; J1885; J2405; J2470; J3490

== ENCOUNTER 2024-07-18 16:08 | Inpatient (IN) | payer MEDICAID ==
[~2024-07-18] VITALS: Ht 165.1 cm; Wt 66.9 kg
[~2024-07-18 16:08] MED LIST changes: +BACDST PO; +CHOLTAB11 PO; +CYAN100088 PO; +DOCU-94 PO; +GABA-1250 PO
[2024-07-18] MEDS: MAALOX PLUS or MAALOX 30 ML PO ONE (16:45)
[2024-07-18] MEDS: ONDANSETRON ODT 4 MG TAB PO ONE (16:46)
[2024-07-18] MEDS: LIDOCAINE VISCOUS 2% 15ML UD PO ONE (16:46)
--- NOTE | 2024-07-18 16:53 | DVH ---
Exam: XY KUB ABDOMEN SINGLE VIEW Indication: Constipation Comparison: XY KUB ABDOMEN SINGLE VIEW on DOS: 07/17/24, XY KUB ABDOMEN SINGLE VIEW on DOS: 07/14/24 Technique: 2 radiographic views of the abdomen. Findings: Nonspecific bowel-gas pattern. There is no definite evidence for pneumoperitoneum. No abnormal calcifications noted. Impression: Nonspecific bowel-gas pattern.
[2024-07-18 16:54] VITALS: PULSE 80
[2024-07-18 17:50] LABS: Basophils # (auto) 0 10 ^3/uL (0-0.2); Basophils % (auto) 0.4 % (0.0-2.0); Eosinophils # (auto) 0.2 10 ^3/uL (0-0.8); Eosinophils % (auto) 4.1 % (0.0-7.0); Hematocrit 40.6 % (36.0-46.0); Hemoglobin 13.9 g/dL (12.2-16.2); Lymphocytes # (auto) 0.9 10 ^3/uL (0.4-5.4); Lymphocytes % (auto) 18.4 % (10.0-50.0); Mean Corpuscular Hemoglobin 30.1 pg (28.0-32.0); Mean Corpuscular Hgb Conc. 34.2 g/dL (32.0-36.0); Mean Corpuscular Volume 87.9 fL (80.0-100.0); Monocytes # (auto) 0.3 10 ^3/uL (0-1.3); Monocytes % (auto) 6.6 % (0.0-12.0); Neutrophils # (auto) 3.6 10 ^3/uL (1.6-8.6); Neutrophils % (auto) 70.5 % (37.0-80.0); Nucleated Red Blood Cells % 0.1 %; Platelet Count (auto) 363 10^3/uL (140-450); Red Blood Cells 4.62 10^6/uL (4.0-5.20); White Blood Cell 5.2 10^3/uL (4.4-10.8)
[2024-07-18 17:59] LABS: Chloride 104 mmol/L (98-107); Potassium 4.1 mmol/L (3.5-5.1); Sodium 138 mmol/L (136-145)
[2024-07-18 18:00] LABS: Anion Gap 9 (5-15); Calcium 9.8 mg/dL (8.7-10.4); Carbon Dioxide 25 mmol/L (20-31)
[2024-07-18 18:05] LABS: BUN/Creatinine Ratio 15.6 (10.0-20.0); Blood Urea Nitrogen 10 mg/dL (9-23); Glucose 91 mg/dL (74-106); Lipase 110 U/L (12-53)
[2024-07-18 20:14] LABS: Urine Bacteria None Seen /hpf (None Seen)
[2024-07-18 20:37] LABS: Urine Blood Negative /uL (Negative); Urine Clarity Turbid (Clear); Urine Color Yellow (Yellow); Urine Mucus MODERATE (None Seen); Urine Protein, UAD 1+ (Negative); Urine Specific Gravity 1.027 (1.001-1.035); Urine Urobilinogen 2 mg/dL (Negative); Urine WBC 3 /hpf (0 - 5); Urine pH 5.5 (5.0-9.0)
--- NOTE | 2024-07-18 21:58 | DVH ---
CLINICAL HISTORY: Elevated lipase TECHNIQUE: CT of the abdomen and pelvis was performed without intravenous contrast. This exam was per formed according to our departmental dose optimization program. Up-to-date CT equipment and radiation dose reduction techniques are utilized as appropriate. WID: COMPARISON: CT CT AB PEL WO CON-NO ORAL OR IV on DOS: 07/11/24 FINDINGS: Lower Thorax: Lung bases are clear. Normal-sized heart. Liver and Biliary system: Prior cholecystectomy. Otherwise unremarkable Spleen: Unremarkable. Adrenal Glands and Kidneys: Unremarkable. Pancreas and Retroperitoneum: Unremarkable. Aorta and Major Vessels: Unremarkable. Bowel, Mesentery and Peritoneal space: Mild ascites. Normal caliber large bowel. There is moderate di ffuse fluid and gas distention of the small bowel with a abrupt transition to decompressed distal sma ll bowel in the left anterior pelvis on series 2, image 69. prior sleeve gastrectomy. Mild ascites. No free air or pneumatosis intestinalis. Pelvis: Decompressed urinary bladder . the uterus is grossly unremarkable. No pelvic lymphadenopathy. Abdominal wall and Osseous Structures: No destructive osseous lesion. IMPRESSION: 1. Small-bowel obstruction with abrupt transition to decompressed distal small bowel in the left ante rior pelvis. 2. Mild ascites. No free air or abscess 3. Prior cholecystectomy.
--- NOTE | 2024-07-18 22:29 | ED.PDOC ---
GI ASSESSMENT HPI Comments Patient is a pleasant 39-year-old female who arrives to the ED today for evaluation of abdominal pain and nausea concerns for the past day. Patient states she was recently discharged from our facility after six days due to some constipation issues. Patient states that she was released yesterday and that beginning last night, her pain had returned and continued throughout the day. Patient returns today for re-evaluation. Patient states that when she eats the food comes up nearly immediately. Patient denies any fever. Patient was mildly tachycardic at arrival. Chief Complaint: Nausea/Vomiting Time Seen by MD: 16:09 Primary Care Provider: DARBY Reviewed Notes: Nurses Notes Allergies: Coded Allergies: NO KNOWN ALLERGIES (Unverified , 11/10/23) Home Meds Active Scripts Docusate Sodium (Colace) 100 Mg Cap, 1 CAP PO BID, #30 CAP Prov:GIORGIO SINGH MOLD MACHINE OPERATOR 07/16/24 Sulfamethoxazole W/Trimethopri (Bactrim Ds Tablet) 1 Tab Tb, 1 TAB PO BID for 5 Days, #10 TAB Prov:GIORGIO SINGH MOLD MACHINE OPERATOR 07/16/24 Reported Medications Gabapentin (Gabapentin) 300 Mg Cap, 300 MG PO DAILY, MG 07/12/24 Cyanocobalamin (Vitamin B-12) 1,000 Mcg Tab, 1000 MCG PO DAILY, TAB 07/12/24 Cholecalciferol (D-5000) 5,000 Unit Tab, 5000 UNIT PO DAILY, TAB 07/12/24 Information Source: Patient, Friend Mode of Arrival: Ambulatory Timing: Days Duration: Since onset Prehospital treatment: None Quality: Cramping Vomitus: Food Particles, Soft, Watery Severity: Moderate Recent: Other (Recently admitted and discharged for constipation concerns.) Recent Hx of: Constipation Pain Location: Diffuse, Periumbilical Modifying Factors: Food Associated sign and symptoms: Nausea Past Medical History PAST MEDICAL HISTORY: Denies Past Medical History (Other): Recently admitted for constipation concerns. Surgical History: ACID ADJUSTER History: No Pertinent ACID ADJUSTER History Family History Family History: Unknown Social History Smoker: Non-Smoker Alcohol: Denies ETOH Use Drugs: Denies Drug Use Lives In: Home Constitutional: denies: chills, diaphoresis, fatigue, fever, malaise, sweats, weakness, others EENTM: denies: blurred vision, double vision, ear bleeding, ear discharge, ear drainage, ear pain, ear ringing, eye pain, eye redness, hearing loss, mouth pain, mouth swelling, nasal discharge, nose bleeding, nose congestion, nose pain, photophobia, tearing, throat pain, throat swelling, voice changes, others Respiratory: denies: cough, hemoptysis, orthopnea, SOB at rest, shortness of breath, SOB with excertion, stridor, wheezing, others Cardiovascular: denies: chest pain, dizzy spells, diaphoresis, Dyspnea on exertion, edema, irregular heart beat, left arm pain, lightheadedness, palpitations, PND, syncope, others Gastrointestinal: reports: abdominal pain, nausea, vomiting; denies: abdomen distended, blood streaked bowels, constipated, diarrhea, dysphagia, difficulty swallowing, hematemesis, melena, poor appetite, poor fluid intake, rectal bleeding, rectal pain, others Genitourinary: denies: abnormal vagina bleeding, burning, dyspareunia, dysuria, flank pain, frequency, hematuria, incontinence, pain, , vagina discharge, urgency, others Neurological: denies: dizziness, fainting, headache, left sided numbness, left sided weakness, numbness, paresthesia, pre-existing deficit, right sided numbness, right sided weakness, seizure, speech problems, tingling, tremors, weakness, others Musculoskeletal: denies: back pain, gout, joint pain, joint swelling, muscle pain, muscle stiffness, neck pain, others Integumetry: denies: bruises, change in color, change in hair/nails, dryness, laceration, lesions, lumps, rash, wounds, others Allergic/Immunocompromised: denies: Difficulty Healing, Frequent Infections, Hives, Itching, others Hematologic/Lymphatic: denies: anemia, blood clots, easy bleeding, easy bruising, swollen glands, others Endocrine: denies: excessive hunger, excessive sweating, excessive thirst, excessive urination, flushing, intolerance to cold, intolerance to heat, unexplained weight gain, unexplained weight loss, others Psychiatric: denies: anxiety, bipolar disorder, depression, hopeless, panic disorder, schizophrenia, sleepless, suicidal, others Physical Exam General Appearance: Moderate Distress (Moderate distress due to pain, nausea and concerns about her condition after recent discharge.), Normal HEENT: Normal ENT Inspection, Pharynx Normal, TMs Normal Neck: Full Range of Motion, Non-Tender, Normal, Normal Inspection Respiratory: Chest Non-Tender, Lungs Clear, No Accessory Muscle Use, No Respiratory Distress, Normal Breath Sounds Cardiovascular: No Edema, No JVD, No Murmur, No Gallop, Normal Peripheral Pulse s, Regular Rate/Rhythm Breast Exam: Deferred Gastrointestinal: Other (Diffuse epigastric and periumbilical tenderness throughout. Abdomen was mildly rigid. No signs of trauma.) Genitalia: Deferred Pelvic: Deferred Rectal: Deferred Extremities: No calf tenderness, Normal capillary refill, Normal inspection, Normal range of motion, Non-tender, No pedal edema Neurologic: Alert, force variation equipment tender II-XII nml as Tested, No Motor Deficits, Normal Affect, Normal Mood, No Sensory Deficits Cerebellar Function: Normal Reflexes: Normal Skin: Dry, Normal Color, Warm Lymphatic: No Adenopathy Was a procedure done? Was a procedure done?: No GI differential Dx Differential Diagnosis: Appendicitis, Bowel Obstruction, Cholangitis, Cho lecystitis, Constipation, Diverticular disease, Gastritis/PUD, Gastroenteritis, Pancreatitis, UTI X-Ray, Labs, Meds, VS Vital Signs Date Time Temp Pulse Resp B/P (MAP) Pulse Ox O2 Delivery O2 Flow Rate FiO2 07/18/24 16:54 80 07/18/24 16:53 98.1 90 18 144/82 (102) 98 98.1 07/18/24 16:26 98.0 107 18 108/79 (89) 97 Lab Test 07/18/24 20:12 07/18/24 17:28 Range/Units Urine Color Yellow Yellow Urine Clarity Turbid H Clear Urine pH 5.5 5.0-9.0 Urine Specific [place] 1.027 1.001-1.035 Urine Protein 1+ H Negative Urine Ketones 2+ H Negative Urine Blood Negative Negative /uL Urine Nitrite Negative Negative Urine Bilirubin Negative Negative Urine Urobilinogen 2 H Negative mg/dL Urine Leukocyte Esterase Negative Negative /uL Urine RBC 1 0 - 4 /hpf Urine WBC 3 0 - 5 /hpf Urine Squamous Epithelial Cells Few <5 /hpf Urine Bacteria None seen None Seen /hpf Urine Mucus Moderate None Seen Urine Glucose Normal Normal mg/dL White Blood Count 5.2 4.4-10.8 10^3/uL Red Blood Count 4.62 4.0-5.20 10^6/uL Hemoglobin 13.9 12.2-16.2 g/dL Hematocrit 40.6 # 36.0-46.0 % Mean Corpuscular Volume 87.9 80.0-100.0 fL Mean Corpuscular Hemoglobin 30.1 28.0-32.0 pg Mean Corpuscular Hemoglobin Concent 34.2 32.0-36.0 g/dL Red Cell Distribution Width 14.0 11.8-14.3 % Platelet Count 363 140-450 10^3/uL Mean Platelet Volume 8.4 6.9-10.8 fL Neutrophils (%) (Auto) 70.5 37.0-80.0 % Lymphocytes (%) (Auto) 18.4 10.0-50.0 % Monocytes (%) (Auto) 6.6 0.0-12.0 % Eosinophils (%) (Auto) 4.1 0.0-7.0 % Basophils (%) (Auto) 0.4 0.0-2.0 % Neutrophils # (Auto) 3.6 1.6-8.6 10 ^3/uL Lymphocytes # (Auto) 0.9 0.4-5.4 10 ^3/uL Monocytes # (Auto) 0.3 0-1.3 10 ^3/uL Eosinophils # (Auto) 0.2 0-0.8 10 ^3/uL Basophils # (Auto) 0 0-0.2 10 ^3/uL Nucleated Red Blood Cells 0.1 % Sodium Level 138 136-145 mmol/L Potassium Level 4.1 3.5-5.1 mmol/L Chloride Level 104 98-107 mmol/L Carbon Dioxide Level 25 20-31 mmol/L Anion Gap 9 5-15 Blood Urea Nitrogen 10 9-23 mg/dL Creatinine 0.64 # 0.550-1.02 mg/dL Glomerular Filtration Rate Calc 114 >90 mL/min BUN/Creatinine Ratio 15.6 10.0-20.0 Serum Glucose 91 74-106 mg/dL Calcium Level 9.8 8.7-10.4 mg/dL Lipase 110 H 12-53 U/L Current Medications Medications (Trade) Dose Ordered Sig/David Route Start Time Stop Time Status Last Admin Al Hydrox/Mg Hydrox/Simethicone (Maalox Plus) 30 ml ONCE ONCE PO 07/18/24 16:30 11/14/24 16:31 DC 07/18/24 16:45 Lidocaine HCl (Xylocaine 2% Viscous) 3 ml ONCE ONCE PO 07/18/24 16:30 07/18/24 16:31 DC 07/18/24 16:46 Ondansetron HCl (Zofran Po) 4 mg ONCE ONCE PO 07/18/24 16:30 07/18/24 16:31 DC 07/18/24 16:46 X-Ray, Labs, Meds, VS Comment All studies performed in the ED today were reviewed by me personally. Laboratories remarkable for an elevated lipase. Imaging studies confirmed a small bowel obstruction. Patient will be admitted for management of that condition as well as a GI consultation. Time of 1ST Reevaluation: 22:27 Reevaluation 1ST: Improved Consultation: PCP Patient Education/Counseling: Diagnosis, Treatment Family Education/Counseling: Diagnosis, Treatment Departure 1 Departure Time of Disposition: 22:28 Impression: Primary Impression: Small bowel obstruction Disposition: ADMITTED INPATIENT Condition: Stable Discharged With: Self Critical Care Note Critical Care Time?: No Stability Stability form required: No Heart Score Heart Score: Heart Score Response (Comments) Value History N/A 0 EKG N/A 0 Age N/A 0 Risk Factors N/A 0 Troponin N/A 0 Total 0 VIBHA RILEY PAC Jul 18, 2024 22:29
[2024-07-18] MEDS ORDERED: MORPHINE SULFATE INJ 2 MG/ml SYRG IV PRN ×2 (23:00)
[2024-07-18] MEDS ORDERED: ONDANSETRON HCL 4 MG/2 ML VIAL IV PRN (23:00)
[2024-07-18] MEDS ORDERED: NITROGLYCERIN 0.4 MG SL TAB SL PRN (23:00)
[2024-07-18] MEDS ORDERED: ACETAMINOPHEN 325 MG TAB PO PRN (23:00)
--- NOTE | 2024-07-18 23:04 | DVHHPRES ---
History of Present Illness Resident Creating Document: MICHAEL SMITH RESIDENT History of Present Illness JUNIOR MELISSA 39 years old female with no significant PMH presented to the ED with a chief complaints of nausea and vomiting since 1 day prior to admission. Patient recently discharged from [facility] yesterday after being treated 6 days for bowel obstruction, after going home she again started having severe nausea, throwing up unable to hold up anything with watery diarrhea throughout the day with less abdominal pain than previous which prompted her visit to ED. on my assessment patient denies fever, chills, chest pain, and other associated symptoms. Past Surgical History: None Past Surgical History , gastric bypass, tummy reduction, tubal ligation Family History: None Past Social History Family. Denies smoking, alcohol and other drug abuse Review of Systems Constitutional: No: Fever, Chills, Sweats, Weakness, Malaise, Other Eyes: No: Pain, Vision change, Conjunctivae inflammation, Eyelid inflammation, Other, Redness ENT: No: Ear pain, Ear discharge, Nose pain, Nose discharge, Nose congestion, Mouth pain, Mouth swelling, Throat pain, Throat swelling, Other Respiratory: No: Cough, Dry, Shortness of breath, SOB with excertion, Wheezing, Hemoptysis, Pleuritic Pain, Sputum, Wheezing, Other Gastrointestinal: Nausea, Vomiting, Abdominal Pain, Diarrhea Genitourinary: No Dysuria, No Frequency, No Incontinence, No Hematuria, No Retention, No Other Musculoskeletal: No: other, neck pain, shoulder pain, arm pain, back pain, hand pain, leg pain, foot pain Skin: No: Rash, Lesions, Jaundice, Bruising, Other Neurological: No: Weakness, Numbness, Incoordination, Change in speech, Confusion, Seizures, Other Allergies: Coded Allergies: NO KNOWN ALLERGIES (Unverified , 11/10/23) Medications Current Medications Medications Dose Ordered Sig/David Route Start Time Stop Time Status Last Admin Dose Admin Sodium Chloride 10 ml Q8HR IV 07/19/24 06:00 UNV Ondansetron HCl 4 mg Q4HP PRN IV 07/18/24 23:00 Acetaminophen 650 mg Q6HP PRN PO 07/18/24 23:00 Morphine Sulfate 2 mg Q4HPRN PRN IV 07/18/24 23:00 Nitroglycerin 0.4 mg Q5MINP PRN SL 07/18/24 23:00 Morphine Sulfate 2 mg Q30M PRN IV 07/18/24 23:00 Exam Vital Signs Vital Signs Date Time Temp Pulse Resp B/P (MAP) Pulse Ox O2 Delivery O2 Flow Rate FiO2 07/18/24 16:54 80 07/18/24 16:53 98.1 18 144/82 (102) 98 98.1 Exam Pt is lying on bed General Appearance: Alert, Oriented X3, Cooperative, mild distress HEENT: Atraumatic, Mucous membranes dry Respiratory: Clear to auscultation, Normal air movement, No added sounds Cardiovascular: Regular rate, Normal S1, Normal S2, No murmurs Abdominal: Active bowel sounds, Soft, mildly distended, no tenderness but discomfort Extremities: No edema, Normal pulses, No tenderness/swelling Skin: No Significant rash, except past surgical scars Neuro: Normal speech, sensorimotor deficits none Psych/Mental Status: Mental status NL, Mood NL Nurse was there as sharperone during examination Labs/Xrays Labs Test 07/18/24 20:12 07/18/24 17:28 Range/Units Urine Color Yellow Yellow Urine Clarity Turbid H Clear Urine pH 5.5 5.0-9.0 Urine Specific [place] 1.027 1.001-1.035 Urine Protein 1+ H Negative Urine Ketones 2+ H Negative Urine Blood Negative Negative /uL Urine Nitrite Negative Negative Urine Bilirubin Negative Negative Urine Urobilinogen 2 H Negative mg/dL Urine Leukocyte Esterase Negative Negative /uL Urine RBC 1 0 - 4 /hpf Urine WBC 3 0 - 5 /hpf Urine Squamous Epithelial Cells Few <5 /hpf Urine Bacteria None seen None Seen /hpf Urine Mucus Moderate None Seen Urine Glucose Normal Normal mg/dL White Blood Count 5.2 4.4-10.8 10^3/uL Red Blood Count 4.62 4.0-5.20 10^6/uL Hemoglobin 13.9 12.2-16.2 g/dL Hematocrit 40.6 # 36.0-46.0 % Mean Corpuscular Volume 87.9 80.0-100.0 fL Mean Corpuscular Hemoglobin 30.1 28.0-32.0 pg Mean Corpuscular Hemoglobin Concent 34.2 32.0-36.0 g/dL Red Cell Distribution Width 14.0 11.8-14.3 % Platelet Count 363 140-450 10^3/uL Mean Platelet Volume 8.4 6.9-10.8 fL Neutrophils (%) (Auto) 70.5 37.0-80.0 % Lymphocytes (%) (Auto) 18.4 10.0-50.0 % Monocytes (%) (Auto) 6.6 0.0-12.0 % Eosinophils (%) (Auto) 4.1 0.0-7.0 % Basophils (%) (Auto) 0.4 0.0-2.0 % Neutrophils # (Auto) 3.6 1.6-8.6 10 ^3/uL Lymphocytes # (Auto) 0.9 0.4-5.4 10 ^3/uL Monocytes # (Auto) 0.3 0-1.3 10 ^3/uL Eosinophils # (Auto) 0.2 0-0.8 10 ^3/uL Basophils # (Auto) 0 0-0.2 10 ^3/uL Nucleated Red Blood Cells 0.1 % Sodium Level 138 136-145 mmol/L Potassium Level 4.1 3.5-5.1 mmol/L Chloride Level 104 98-107 mmol/L Carbon Dioxide Level 25 20-31 mmol/L Anion Gap 9 5-15 Blood Urea Nitrogen 10 9-23 mg/dL Creatinine 0.64 # 0.550-1.02 mg/dL Glomerular Filtration Rate Calc 114 >90 mL/min BUN/Creatinine Ratio 15.6 10.0-20.0 Serum Glucose 91 74-106 mg/dL Calcium Level 9.8 8.7-10.4 mg/dL Lipase 110 H 12-53 U/L Assessment/Plan Assessment/Plan # small-bowel obstruction -CT abdominal pelvis showed SBO with abrupt transition to decompressed distal small bowel -currently NPO -Surgical consult if needed # mild dehydration -monitor lab -IVF No VTE ppx Protonix NPO for now Goals of care discussed with the patient for more than 27 minutes: Full code status Case management discussed with Dr. Dc, patient and nurse Plan discussed with: Patient My Orders Orders - MICHAEL SMITH RESIDENT Procedure Category Date Status Time Admit ADMIT 07/18/24 Transmitted 22:52 Allergies TY 07/18/24 In Process 22:52 Code Status CODE 07/18/24 Transmitted 22:52 Sodium Chloride Lock PHA 07/19/24 Logged (Saline Lock Ns) 06:00 Ondansetron Hcl PHA 07/18/24 In Process (Zofran) 23:00 Complete Blood Count LAB 07/19/24 Verified 04:00 Comprehensive LAB 07/19/24 Verified Metabolic Panel 04:00 Npo (Nothing By DIET 07/19/24 Transmitted Mouth) Diet Breakfast Acetaminophen Tablet PHA 07/18/24 In Process (Tylenol Tablet) 23:00 Morphine Sulfate PHA 07/18/24 In Process Injection 23:00 Nitroglycerin PHA 07/18/24 In Process Sublingual (Ntrostat 23:00 Morphine Sulfate PHA 07/18/24 In Process Injection 23:00 Oxygen By Nasal RT 07/18/24 Transmitted Cannula 22:52 Stat Ekg For Chest [facility] 07/18/24 In Process Pain 22:52 Notify Md Of Changes [facility] 07/18/24 In Process From Base 22:52 Faculty Criminal Justice For [facility] 07/18/24 In Process 24 Hours 22:52 Emergency Dysrhythmia [facility] 07/18/24 In Process Protocol 22:52 Rhythm Strips Once [facility] 07/18/24 In Process Every Shift 22:52 Comprehensive LAB 07/18/24 Logged Metabolic Panel 22:52 Lipase LAB 07/18/24 Logged 23:00 Date of Service: Jul 18, 2024 Billing Provider: BRUNO CD MD Common Visit Codes: [id number] INP/OBS CARE (HIGH) Secondary Visit Codes: [id number] CARE PLAN 30 MINUTES MICHAEL SMITH RESIDENT Jul 18, 2024 23:04 BRUNO DC MD Jul 19, 2024 14:59
[2024-07-18] MEDS: PANTOPRAZOLE 40 MG/10 ML VIAL INJ IV ONE (23:15)
[2024-07-18] MEDS: SODIUM CHLORIDE 0.9% 1,000 ML IV ONE (23:15)
[2024-07-18 23:44] LABS: Alanine Aminotransferase 122 U/L (7-40); Albumin 4.5 g/dL (3.2-4.8); Alkaline Phosphatase 83 U/L (46-116); Anion Gap 9 (5-15); Aspartate Aminotransferase 30 U/L (13-40); BUN/Creatinine Ratio 16.7 (10.0-20.0); Bilirubin, Total 0.8 mg/dL (0.2-1.0); Blood Urea Nitrogen 12 mg/dL (9-23); Calcium 9.6 mg/dL (8.7-10.4); Carbon Dioxide 27 mmol/L (20-31); Chloride 104 mmol/L (98-107); Glucose 111 mg/dL (74-106); Potassium 4.2 mmol/L (3.5-5.1); Sodium 140 mmol/L (136-145)
[2024-07-19] MEDS: SODIUM CHLOR 0.9% PF (SALINE LOCK) 10ML VIAL/SYR IV SCH (06:05)
[2024-07-19 06:26] LABS: Basophils # (auto) 0 10 ^3/uL (0-0.2); Basophils % (auto) 0.3 % (0.0-2.0); Eosinophils # (auto) 0.3 10 ^3/uL (0-0.8); Eosinophils % (auto) 5.9 % (0.0-7.0); Hematocrit 35.8 % (36.0-46.0); Lymphocytes # (auto) 1.2 10 ^3/uL (0.4-5.4); Lymphocytes % (auto) 26.3 % (10.0-50.0); Mean Corpuscular Hemoglobin 29.7 pg (28.0-32.0); Mean Corpuscular Hgb Conc. 33.5 g/dL (32.0-36.0); Mean Corpuscular Volume 88.6 fL (80.0-100.0); Monocytes # (auto) 0.4 10 ^3/uL (0-1.3); Monocytes % (auto) 9.6 % (0.0-12.0); Neutrophils # (auto) 2.6 10 ^3/uL (1.6-8.6); Neutrophils % (auto) 57.9 % (37.0-80.0); Nucleated Red Blood Cells % 0.2 %; Platelet Count (auto) 293 10^3/uL (140-450); Red Blood Cells 4.05 10^6/uL (4.0-5.20); Red Cell Distribution Width 14.2 % (11.8-14.3); White Blood Cell 4.5 10^3/uL (4.4-10.8)
[2024-07-19 06:48] LABS: Alanine Aminotransferase 86 U/L (7-40); Alkaline Phosphatase 65 U/L (46-116); Anion Gap 8 (5-15); BUN/Creatinine Ratio 23.3 (10.0-20.0); Blood Urea Nitrogen 10 mg/dL (9-23); Calcium 8.5 mg/dL (8.7-10.4); Carbon Dioxide 23 mmol/L (20-31); Chloride 108 mmol/L (98-107); Glucose 91 mg/dL (74-106); Potassium 3.7 mmol/L (3.5-5.1); Sodium 139 mmol/L (136-145)
[2024-07-19 06:49] LABS: Albumin 3.6 g/dL (3.2-4.8); Aspartate Aminotransferase 20 U/L (13-40); Bilirubin, Total 0.9 mg/dL (0.2-1.0); Total Protein 5.5 g/dL (5.7-8.2)
[2024-07-19 09:02] LABS: COVID19 ANTIGEN SOFIA FIA NEGATIVE (NEGATIVE)
[2024-07-19 09:04] LABS: INR 1.13 (0.9-1.15); Prothrombin Time 11.9 sec (9.3-11.8)
--- NOTE | 2024-07-19 11:40 | DVHINCON2 ---
Date of service: Jul 19, 2024 History of Present Illness 39-year-old female with a previous recent hospitalization for small bowel obstruction treated conservatively and was sent home however returned back to the emergency room secondary to worsening abdominal pain associated with nausea and vomiting. However today patient reports significant improvement in her abdominal pain and also reports having bowel movements. Past Medical History None Past Surgical History . Tubal ligation. Gastric bypass surgery. Panniculectomy. Family History: Patient reports no known family medical history. Family History Noncontributory Social History Denies alcohol, tobacco, IV drug use Allergies: Coded Allergies: NO KNOWN ALLERGIES (Unverified , 11/10/23) Home Meds Active Scripts Docusate Sodium (Colace) 100 Mg Cap, 1 CAP PO BID, #30 CAP Prov:GIORGIO SINGH [employer]PECT[employer] 07/16/24 Sulfamethoxazole W/Trimethopri (Bactrim Ds Tablet) 1 Tab Tb, 1 TAB PO BID for 5 Days, #10 TAB Prov:GIORGIO SINGH [employer] INSPECTOR 07/16/24 Reported Medications Gabapentin (Gabapentin) 300 Mg Cap, 300 MG PO DAILY, MG 07/12/24 Cyanocobalamin (Vitamin B-12) 1,000 Mcg Tab, 1000 MCG PO DAILY, TAB 07/12/24 Cholecalciferol (D-5000) 5,000 Unit Tab, 5000 UNIT PO DAILY, TAB 07/12/24 Current Medications Current Medications Medications (Trade) Dose Ordered Sig/David Route PRN Reason Start Time Stop Time Status Last Admin Sodium Chloride (Saline Lock Ns) 10 ml Q8HR IV 07/19/24 06:00 07/19/24 06:05 Ondansetron HCl (Zofran) 4 mg Q4HP PRN IV NAUSEA / VOMITING 07/18/24 23:00 Acetaminophen (Tylenol Tablet) 650 mg Q6HP PRN PO PAIN SCALE 1-3 OR TEMP>100.4 07/18/24 23:00 Morphine Sulfate 2 mg Q4HPRN PRN IV SEVERE PAIN (7-10 PAIN SCALE) 07/18/24 23:00 Nitroglycerin (Ntrostat Sublingual) 0.4 mg Q5MINP PRN SL FOR CHEST PAIN 07/18/24 23:00 07/19/24 08:14 DC Morphine Sulfate 2 mg Q30M PRN IV FOR CHEST PAIN 07/18/24 23:00 07/19/24 08:14 DC Vital Signs Vital Signs Date Time Temp Pulse Resp B/P (MAP) Pulse Ox O2 Delivery O2 Flow Rate FiO2 07/19/24 09:42 63 18 98/65 (76) 96 07/19/24 07:57 98.1 98.1 07/18/24 23:52 Room Air* 0 21 Physical Exam GEN: Age-appropriate female in no acute distress. Alert. HEENT: Normocephalic atraumatic. Moist mucous membranes. Anicteric sclerae. CV: RRR Respiratory: CTAB ABD: Well-healed incisional scars. Abdomen is soft. Nontender nondistended. CT of the abdomen and pelvis earlier showed findings consistent with small-bowel obstruction with transition point in the anterior pelvis. Labs/Diagnostic Data Labs Test 07/19/24 07:50 07/19/24 05:16 07/18/24 20:12 07/18/24 17:28 Range/Units SARS-CoV-2 Antigen (Rapid) Negative NEGATIVE White Blood Count 4.5 4.4-10.8 10^3/uL Red Blood Count 4.05 4.0-5.20 10^6/uL Hemoglobin 12.0 L 12.2-16.2 g/dL Hematocrit 35.8 #L 36.0-46.0 % Mean Corpuscular Volume 88.6 80.0-100.0 fL Mean Corpuscular Hemoglobin 29.7 28.0-32.0 pg Mean Corpuscular Hemoglobin Concent 33.5 32.0-36.0 g/dL Red Cell Distribution Width 14.2 11.8-14.3 % Platelet Count 293 140-450 10^3/uL Mean Platelet Volume 8.6 6.9-10.8 fL Neutrophils (%) (Auto) 57.9 37.0-80.0 % Lymphocytes (%) (Auto) 26.3 10.0-50.0 % Monocytes (%) (Auto) 9.6 0.0-12.0 % Eosinophils (%) (Auto) 5.9 0.0-7.0 % Basophils (%) (Auto) 0.3 0.0-2.0 % Neutrophils # (Auto) 2.6 1.6-8.6 10 ^3/uL Lymphocytes # (Auto) 1.2 0.4-5.4 10 ^3/uL Monocytes # (Auto) 0.4 0-1.3 10 ^3/uL Eosinophils # (Auto) 0.3 0-0.8 10 ^3/uL Basophils # (Auto) 0 0-0.2 10 ^3/uL Nucleated Red Blood Cells 0.2 % Prothrombin Time 11.9 H 9.3-11.8 sec Prothrombin Time INR 1.13 0.9-1.15 Activated Partial Thromboplast Time 25.0 24.5-34.5 SEC Sodium Level 139 136-145 mmol/L Potassium Level 3.7 3.5-5.1 mmol/L Chloride Level 108 H 98-107 mmol/L Carbon Dioxide Level 23 20-31 mmol/L Anion Gap 8 5-15 Blood Urea Nitrogen 10 9-23 mg/dL Creatinine 0.43 #L 0.550-1.02 mg/dL Glomerular Filtration Rate Calc 125 >90 mL/min BUN/Creatinine Ratio 23.3 H 10.0-20.0 Serum Glucose 91 74-106 mg/dL Calcium Level 8.5 L 8.7-10.4 mg/dL Total Bilirubin 0.9 0.2-1.0 mg/dL Aspartate Amino Transferase (AST) 20 13-40 U/L Alanine Aminotransferase (ALT) 86 H 7-40 U/L Alkaline Phosphatase 65 46-116 U/L Total Protein 5.5 L 5.7-8.2 g/dL Albumin 3.6 3.2-4.8 g/dL Thyroid Stimulating Hormone (TSH) 2.12 0.55-4.78 uIU/mL Urine Color Yellow Yellow Urine Clarity Turbid H Clear Urine pH 5.5 5.0-9.0 Urine Specific [place] 1.027 1.001-1.035 Urine Protein 1+ H Negative Urine Ketones 2+ H Negative Urine Blood Negative Negative /uL Urine Nitrite Negative Negative Urine Bilirubin Negative Negative Urine Urobilinogen 2 H Negative mg/dL Urine Leukocyte Esterase Negative Negative /uL Urine RBC 1 0 - 4 /hpf Urine WBC 3 0 - 5 /hpf Urine Squamous Epithelial Cells Few <5 /hpf Urine Bacteria None seen None Seen /hpf Urine Mucus Moderate None Seen Urine Glucose Normal Normal mg/dL Lipase 110 H 12-53 U/L Assessment 1. Possibly resolving partial small bowel obstruction Plan/Recommendation 1. We will get a KUB. If it shows significant improvement, patient can be started on clear liquid diet with possible discharge home on liquid diet. Plan discussed with: Patient BARRY LOWE MD Jul 19, 2024 11:40
--- NOTE | 2024-07-19 12:52 | DVH ---
Date: 07/19/2024 12:23 PM Examination: XY KUB ABDOMEN SINGLE VIEW History: Small-bowel obstruction. Comparison: XY KUB ABDOMEN SINGLE VIEW on DOS: 07/18/24, XY KUB ABDOMEN SINGLE VIEW on DOS: 07/17/24, XY KUB ABDOMEN SINGLE VIEW on DOS: 07/14/24 TECHNIQUE: Frontal views of the abdomen was obtained. FINDINGS: Distended small bowel loops again noted with gas visualized in the colon. Similar to the prior radiog raphs. Surgical clips are seen in the right upper abdomen from prior cholecystectomy. There is also a clip in the right lower abdomen. Suture material in the upper abdomen near the expected location of the gastroesophageal junction / proximal stomach. IMPRESSION: Nonspecific bowel gas pattern, may be seen with ileus or partial small bowel obstruction. Correlate w ith clinical findings.
--- NOTE | 2024-07-19 16:14 | DVHPNRES ---
Progress Note Date Seen: Jul 19, 2024 Resident Creating Document: GRACIE WILKINSON RESIDENT Medical Necessity Reason Pt with a Central, PICC or Fol: No Subjective Review of Systems This a 39-year-old female patient who presents to the ER with a chief complaint of vomiting for the past day. Patient was recently discharged from this facility on 07/06 secondary to partial SBO and UTI on Bactrim and Colace. She denies taking the Bactrim. He reports going home and making adequate bowel movements, would eat regular diet. 07/18-patient started vomiting and could not keep anything down including solids or liquids. She had 3 episodes of vomiting following which he decided to come to the ER. Also says that she was experiencing watery diarrhea for the past 1 day. Patient reports passing gas and had a bowel movement on 07/18. She denies abdominal pain, fever, chills, chest pain, shortness of breath, chest pain, palpitations, dizziness or lightheadedness. PMH/PSH: Cholecystectomy 2009, gastric bypass 2021, tummy tuck 03/2024 Social history Lives with , denies smoking, drinks socially, denies illicit drug use Home medication: None Family history: Unremarkable Patient seen and examined in the ER. No abdominal tenderness. Reports no and nausea/vomiting. But unable to tolerate diet. Surgeon consulted. Started clear liquid diet. Objective vital signs Vital Sign Date Time Temp Pulse Resp B/P (MAP) Pulse Ox O2 Delivery O2 Flow Rate FiO2 07/19/24 14:23 75 18 99/67 (78) 97 07/19/24 07:57 98.1 98.1 07/18/24 23:52 Room Air* 0 21 Total Intake and Output 07/18/24 07/18/24 07/19/24 15:00 23:00 07:00 Intake Total 525 ml Balance 525 ml medications Current Medications Medications Dose Ordered Sig/David Route Start Time Stop Time Status Last Admin Dose Admin Sodium Chloride 10 ml Q8HR IV 07/19/24 06:00 07/19/24 14:03 10 ML Ondansetron HCl 4 mg Q4HP PRN IV 07/18/24 23:00 Acetaminophen 650 mg Q6HP PRN PO 07/18/24 23:00 Morphine Sulfate 2 mg Q4HPRN PRN IV 07/18/24 23:00 Examination Young female patient lying in bed, in no acute distress General: Well-built, afebrile, palor, mucosae are moist Cardiovascular: Regular S1 and S2. No murmurs, gallops or rubs. No JVD elevation. No pedal edema Respiratory: Normal B/L air entry on room air. Clear lung sounds on auscultation Abdomen: Soft, nontender, nondistended, hypertympanic bowel sounds, no rebound tenderness, no organomegaly, no masses Genitourinary: Deferred MSK/skin: Mobilizes 4 limbs. Skin is dry and warm Neurological: No motor, no sensitive deficits, normal speech. Pupils are isocoric and reactive. Psych/Mental Status: A/Ox4 laboratory and microbiology Laboratory Tests 07/19/24 05:16 Test 07/19/24 05:16 Range/Units Serum Glucose 91 74-106 mg/dL Labs and/or images reviewed: Labs reviewed by me, Image(s) reviewed by me Problem List/Assessment/Plan Problem List/Assessment/Plan Probable partial small bowel obstruction X-ray KUB shows nonspecific bowel gas pattern. CT abdomen shows SBO with abrupt transition to decompressed distal small bowel in the left anterior pelvis. Mild ascites. Surgeon consulted-started clear liquid diet 07/19 Intractable nausea and vomiting IV ondansetron q.4 p.r.n. Anemia, likely normocytic Monitor H&H History of gastric bypass 2021 and tummy tuck 2023 Patient denies taking any vitamin/minerals History of cholecystectomy Monitor DVT prophylaxis Patient is ambulatory Diet Clear liquid Plan discussed with patient in which all questions have been answered Goals of care discussed with patient for more than 25 minute, full code status Case discussed with Dr. Elena. Plan discussed with: Patient Date of Service: Jul 19, 2024 Billing Provider: ARIELA BAKER MD Common Visit Codes: [id number] INP/OBS CARE(HIGH) GRACIE WILKINSON RESIDENT Jul 19, 2024 16:14 ARIELA BAKER MD Jul 20, 2024 19:59
[2024-07-19 16:35] VITALS: BP 98/63; PULSE 72; RESP 16; TEMP 98; O2SAT 98
[2024-07-19 20:00] VITALS: PULSE 75; RESP 17; O2SAT 95
[2024-07-19 21:00] VITALS: BP 105/69; PULSE 75; RESP 17; TEMP 97.7; O2SAT 95
[2024-07-20 05:00] VITALS: BP 100/63; PULSE 77; RESP 18; TEMP 98.3; O2SAT 95
[2024-07-20 06:21] LABS: Chloride 106 mmol/L (98-107); Sodium 138 mmol/L (136-145)
[2024-07-20 06:22] LABS: Anion Gap 8 (5-15); Calcium 8.9 mg/dL (8.7-10.4); Carbon Dioxide 24 mmol/L (20-31)
[2024-07-20 06:26] LABS: Basophils # (auto) 0 10 ^3/uL (0-0.2); Basophils % (auto) 0.6 % (0.0-2.0); Eosinophils # (auto) 0.4 10 ^3/uL (0-0.8); Eosinophils % (auto) 8.7 % (0.0-7.0); Hematocrit 35.9 % (36.0-46.0); Hemoglobin 12.3 g/dL (12.2-16.2); Lymphocytes # (auto) 1.2 10 ^3/uL (0.4-5.4); Lymphocytes % (auto) 24.8 % (10.0-50.0); Mean Corpuscular Hgb Conc. 34.2 g/dL (32.0-36.0); Mean Corpuscular Volume 87.8 fL (80.0-100.0); Monocytes # (auto) 0.4 10 ^3/uL (0-1.3); Monocytes % (auto) 7.6 % (0.0-12.0); Neutrophils # (auto) 2.8 10 ^3/uL (1.6-8.6); Neutrophils % (auto) 58.3 % (37.0-80.0); Nucleated Red Blood Cells % 0.1 %; Platelet Count (auto) 322 10^3/uL (140-450); Red Blood Cells 4.09 10^6/uL (4.0-5.20); Red Cell Distribution Width 13.9 % (11.8-14.3); White Blood Cell 4.8 10^3/uL (4.4-10.8)
[2024-07-20 06:27] LABS: BUN/Creatinine Ratio 15.4 (10.0-20.0); Blood Urea Nitrogen 8 mg/dL (9-23); Glucose 83 mg/dL (74-106)
[2024-07-20 08:00] VITALS: PULSE 80; RESP 20; O2SAT 96
[2024-07-20 08:42] VITALS: BP 100/69; PULSE 80; RESP 20; TEMP 98.3; O2SAT 96
[2024-07-20 13:16] VITALS: BP 95/61; PULSE 75; RESP 20; TEMP 98.3; O2SAT 99
--- NOTE | 2024-07-20 13:18 | DVHDSRES ---
Discharge Summary Date of Admission Resident Creating Document: ALEX LOUISE Jul 18, 2024 at 22:52 Date of Discharge: Jul 20, 2024 Labs/Diagnostic Data: Laboratory Results Test 07/20/24 05:37 07/19/24 07:50 07/19/24 05:16 07/18/24 20:12 White Blood Count 4.8 10^3/uL (4.4-10.8) Red Blood Count 4.09 10^6/uL (4.0-5.20) Hemoglobin 12.3 g/dL (12.2-16.2) Hematocrit 35.9 % (36.0-46.0) Mean Corpuscular Volume 87.8 fL (80.0-100.0) Mean Corpuscular Hemoglobin 30.0 pg (28.0-32.0) Mean Corpuscular Hemoglobin Concent 34.2 g/dL (32.0-36.0) Red Cell Distribution Width 13.9 % (11.8-14.3) Platelet Count 322 10^3/uL (140-450) Mean Platelet Volume 8.2 fL (6.9-10.8) Neutrophils (%) (Auto) 58.3 % (37.0-80.0) Lymphocytes (%) (Auto) 24.8 % (10.0-50.0) Monocytes (%) (Auto) 7.6 % (0.0-12.0) Eosinophils (%) (Auto) 8.7 % (0.0-7.0) Basophils (%) (Auto) 0.6 % (0.0-2.0) Neutrophils # (Auto) 2.8 10 ^3/uL (1.6-8.6) Lymphocytes # (Auto) 1.2 10 ^3/uL (0.4-5.4) Monocytes # (Auto) 0.4 10 ^3/uL (0-1.3) Eosinophils # (Auto) 0.4 10 ^3/uL (0-0.8) Basophils # (Auto) 0 10 ^3/uL (0-0.2) Nucleated Red Blood Cells 0.1 % Sodium Level 138 mmol/L (136-145) Potassium Level 4.0 mmol/L (3.5-5.1) Chloride Level 106 mmol/L (98-107) Carbon Dioxide Level 24 mmol/L (20-31) Anion Gap 8 (5-15) Blood Urea Nitrogen 8 mg/dL (9-23) Creatinine 0.52 mg/dL (0.550-1.02) Glomerular Filtration Rate Calc 120 mL/min (>90) BUN/Creatinine Ratio 15.4 (10.0-20.0) Serum Glucose 83 mg/dL (74-106) Calcium Level 8.9 mg/dL (8.7-10.4) SARS-CoV-2 Antigen (Rapid) Negative (NEGATIVE) Prothrombin Time 11.9 sec (9.3-11.8) Prothrombin Time INR 1.13 (0.9-1.15) Activated Partial Thromboplast Time 25.0 SEC (24.5-34.5) Total Bilirubin 0.9 mg/dL (0.2-1.0) Aspartate Amino Transferase (AST) 20 U/L (13-40) Alanine Aminotransferase (ALT) 86 U/L (7-40) Alkaline Phosphatase 65 U/L (46-116) Total Protein 5.5 g/dL (5.7-8.2) Albumin 3.6 g/dL (3.2-4.8) Thyroid Stimulating Hormone (TSH) 2.12 uIU/mL (0.55-4.78) Beta HCG, Quantitative < 0.0 mIU/mL (1.5-4.2) Urine Color Yellow (Yellow) Urine Clarity Turbid (Clear) Urine pH 5.5 (5.0-9.0) Urine Specific [place] 1.027 (1.001-1.035) Urine Protein 1+ (Negative) Urine Ketones 2+ (Negative) Urine Blood Negative /uL (Negative) Urine Nitrite Negative (Negative) Urine Bilirubin Negative (Negative) Urine Urobilinogen 2 mg/dL (Negative) Urine Leukocyte Esterase Negative /uL (Negative) Urine RBC 1 /hpf (0 - 4) Urine WBC 3 /hpf (0 - 5) Urine Squamous Epithelial Cells Few /hpf (<5) Urine Bacteria None seen /hpf (None Seen) Urine Mucus Moderate (None Seen) Urine Glucose Normal mg/dL (Normal) Test 07/18/24 17:28 Lipase 110 U/L (12-53) Other Laboratory Tests 07/20/24 05:37 Brief Hx & Hospital Course: 39 f with multiple past abd/pelvic surgeries in the past including Cholecystectomy 2009, gastric bypass 2021, logan grossman 03/2024 presented to the ER with a chief complaint of vomiting for the 1 day. Patient was recently discharged from this facility on 07/06 secondary to partial SBO and UTI on Bactrim and Colace. She denies taking the Bactrim. She reported going home and making adequate bowel movements, would eat regular diet. 07/18-patient started vomiting and could not keep anything down including solids or liquids. She had 3 episodes of vomiting following which she decided to come to the ER. She was experiencing watery diarrhea for the past 1 day. Patient reported passing gas and had a bowel movement on 07/18. X-ray KUB showed nonspecific bowel gas pattern. CT abdomen showed SBO with abrupt transition to decompressed distal small bowel in the left anterior pelvis. Mild ascites. pt was started on ondasetron which relieved her symptoms. Surgery was consulted. Repeated Xray abd showed Nonspecific bowel gas pattern, may be seen with ileus or partial small bowel obstruction. Pt was started on clear liquid diet and she tolerated well. She mentioned significant improvement in her symptoms. At the time of discharge, patient had stable vitals, no new complaints. Discharge planning was discussed with the patient and she was advised to follow up with PCP within 1 week and Surgeon within 1-2 weeks. per surgeon recommendation, she was advised to continue liquid diet at home for 7 days. Consults/Reason for consult Surgical consult for possible small bowel obstruction Condition at Discharge: Stable Final Diagnosis/Problems List partial small bowel obstruction Intractable nausea and vomiting Cholecystectomy 2009, gastric bypass 2021 Anemia, likely normocytic Discharge Disposition: Home Discharge Instruct/Medications Diet: See Comment Diet comment: clear liquid diet Activity: No Restrictions, As Tolerated Follow Up/Referral: f/u with pcp/surgeon within 1-2 weeks Discharge Statement: "Patient was advised to return to the ER or call 911 if any headaches, dizziness, shortness of breath, chest pain, abdominal pain, bleeding, fevers, or worsening of medical condition. Patient was counseled about treatment plan, medications, possible side effects, patientverbalized understanding. All questions were answered to the best of my ability. This discharge took greater then 30 minutes in planning, reviewing documentation, counseling the patient, and discussing with other team members." ASSESSMENT ASSESSMENT Assessment partial small bowel obstruction Date of Service: Jul 20, 2024 Billing Provider: PARIS QUIROZ DO Common Visit Codes: 86002-UGE/OBS DISCH DAY >30min ALEX LOUISE RESIDENT Jul 20, 2024 13:18 PARIS QUIROZ DO Jul 22, 2024 20:17
[2024-07-20 14:05] VITALS: BP 95/61; PULSE 75; RESP 20; TEMP 98.3; O2SAT 99
[2024-07-20 16:53] VITALS: BP 101/72; PULSE 92; RESP 20; TEMP 99; O2SAT 97
== END 2024-07-20 16:57 | disposition home or self-care (01) | DRG 247 ==
LOC: ER 16:08 → OVERFLOW 22:52 → EAST 07-19 16:21
PROVIDERS: ADMIT Student in an Organized Health Care Education/Training Program; ATTEND Student in an Organized Health Care Education/Training Program
DX: K56.690 Other partial intestinal obstruction (principal); R18.8 Other ascites; D64.9 Anemia, unspecified; K59.00 Constipation, unspecified; Z98.84 Bariatric surgery status; Z90.49 Acquired absence of other specified parts of digestive tract; Z79.899 Other long term (current) drug therapy
CPT/HCPCS: 36415; 74018; 74176; 80048; 80053; 81001; 83690; 84443; 84702; 85025; 85610; 85730; 86850; 86900; 86901; 87426; G0378; J2470; Q0162

== ENCOUNTER 2024-11-03 04:22 | Emergency (ER) | payer MEDICAID ==
[~2024-11-03] VITALS: Ht 165.1 cm; Wt 62.0 kg
[~2024-11-03 04:22] MED LIST changes: -LOPE2CAP16 PO; -ZOFR4T PO
--- NOTE | 2024-11-03 04:49 | ED.PDOC ---
History of Present Illness HPI Comments 39-year-old female who came to emergency room due to dizziness. Patient states she started experiencing dizziness around 11 pm last night, described as spinning, and associated with nausea and right sided tinnitus. States she sometimes experiences dizziness whenever her blood pressure is low. Blood pressure upon arrival was 98/71 mmHg. Chief Complaint: Dizziness Time Seen by MD: 04:49 Primary Care Provider: DARBY Hatfield Notes: Nurses Notes Allergies: Coded Allergies: NO KNOWN ALLERGIES (Unverified , 11/10/23) Home Meds Active Scripts Docusate Sodium (Colace) 100 Mg Cap, 1 CAP PO BID, #30 CAP Prov:GIORGIO SINGH CRUISE COORDINATOR 07/16/24 Sulfamethoxazole W/Trimethopri (Bactrim Ds Tablet) 1 Tab Tb, 1 TAB PO BID for 5 Days, #10 TAB Prov:GIORGIO SINGH CRUISE COORDINATOR 07/16/24 Reported Medications Gabapentin (Gabapentin) 300 Mg Cap, 300 MG PO DAILY, MG 07/12/24 Cyanocobalamin (Vitamin B-12) 1,000 Mcg Tab, 1000 MCG PO DAILY, TAB 07/12/24 Cholecalciferol (D-5000) 5,000 Unit Tab, 5000 UNIT PO DAILY, TAB 07/12/24 Information Source: Patient Mode of Arrival: Ambulatory Severity: Moderate Timing: Hours Duration: Since onset Prehospital treatment: None Past Medical History PAST MEDICAL HISTORY: Denies Surgical History: Cholecystectomy, Surgical History (Other): Bariatric surgery BANK TELLER History: No Pertinent BANK TELLER History Family History Family History: Reviewed,noncontributory to illness Social History Smoker: Non-Smoker Alcohol: Denies ETOH Use Drugs: Denies Drug Use Lives In: Home Constitutional: denies: chills, diaphoresis, fatigue, fever, malaise, sweats, weakness, others EENTM: reports: ear pain (right); denies: blurred vision, double vision, ear bleeding, ear discharge, ear drainage, ear ringing, eye pain, eye redness, hearing loss, mouth pain, mouth swelling, nasal discharge, nose bleeding, nose congestion, nose pain, photophobia, tearing, throat pain, throat swelling, voice changes, others Respiratory: denies: cough, hemoptysis, orthopnea, SOB at rest, shortness of breath, SOB with excertion, stridor, wheezing, others Cardiovascular: denies: chest pain, dizzy spells, diaphoresis, Dyspnea on exertion, edema, irregular heart beat, left arm pain, lightheadedness, palpitations, PND, syncope, others Gastrointestinal: reports: nausea; denies: abdomen distended, abdominal pain, blood streaked bowels, constipated, diarrhea, dysphagia, difficulty swallowing, hematemesis, melena, poor appetite, poor fluid intake, rectal bleeding, rectal pain, vomiting, others Genitourinary: denies: abnormal vagina bleeding, burning, dyspareunia, dysuria, flank pain, frequency, hematuria, incontinence, pain, , vagina discharge, urgency, others Neurological: reports: dizziness; denies: fainting, headache, left sided numbness, left sided weakness, numbness, paresthesia, pre-existing deficit, right sided numbness, right sided weakness, seizure, speech problems, tingling, tremors, weakness, others Musculoskeletal: denies: back pain, gout, joint pain, joint swelling, muscle pain, muscle stiffness, neck pain, others Integumetry: denies: bruises, change in color, change in hair/nails, dryness, laceration, lesions, lumps, rash, wounds, others Allergic/Immunocompromised: denies: Difficulty Healing, Frequent Infections, Hives, Itching, others Hematologic/Lymphatic: denies: anemia, blood clots, easy bleeding, easy bruising, swollen glands, others Endocrine: denies: excessive hunger, excessive sweating, excessive thirst, excessive urination, flushing, intolerance to cold, intolerance to heat, unexplained weight gain, unexplained weight loss, others Psychiatric: denies: anxiety, bipolar disorder, depression, hopeless, panic disorder, schizophrenia, sleepless, suicidal, others Physical Exam General Appearance: No Apparent Distress, Normal HEENT: Normal ENT Inspection, Pharynx Normal, TMs Normal Neck: Full Range of Motion, Non-Tender, Normal, Normal Inspection Respiratory: Chest Non-Tender, Lungs Clear, No Accessory Muscle Use, No Respiratory Distress, Normal Breath Sounds Cardiovascular: No Edema, No JVD, No Murmur, No Gallop, Normal Peripheral Pulses, Regular Rate/Rhythm Breast Exam: Deferred Gastrointestinal: No Organomegaly, Non Tender, No Pulsatile Mass, Normal Bowel Sounds, Soft Genitalia: Deferred Pelvic: Deferred Rectal: Deferred Extremities: No calf tenderness, Normal capillary refill, Normal inspection, Normal range of motion, Non-tender, No pedal edema Musculoskeletal : Apperance: Normal Neurologic: Alert, bet taker II-XII nml as Tested, No Motor Deficits, Normal Affect, Normal Mood, No Sensory Deficits Cerebellar Function: Normal Reflexes: Normal Skin: Dry, Normal Color, Warm Lymphatic: No Adenopathy Was a procedure done? Was a procedure done?: No Differential Dx Considerations may include: Anemia, electrolyte imbalance, vertigo, dizziness X-Ray, Labs, Meds, VS Vital Signs Date Time Temp Pulse Resp B/P (MAP) Pulse Ox O2 Delivery O2 Flow Rate FiO2 11/03/24 07:26 97.6 63 16 101/63 (76) 99 97.6 11/03/24 07:26 63 16 99 Room Air* 0 21 11/03/24 06:19 60 17 98 Room Air 11/03/24 06:19 97.6 60 17 97/60 (72) 98 97.6 11/03/24 04:35 98.1 68 13 98/71 (80) 98 Lab Test 11/03/24 05:00 11/03/24 04:56 11/03/24 04:51 Range/Units Urine Color Yellow Yellow Urine Clarity Clear Clear Urine pH 5.0 5.0-9.0 Urine Specific [place] 1.031 1.001-1.035 Urine Protein Trace H Negative Urine Ketones Negative Negative Urine Blood Trace H Negative /uL Urine Nitrite Negative Negative Urine Bilirubin Negative Negative Urine Urobilinogen Normal Negative mg/dL Urine Leukocyte Esterase Trace Negative /uL Urine RBC 2 0 - 4 /hpf Urine Microscopic WBC 1 0-5 /HPF Urine Squamous Epithelial Cells Few <5 /hpf Urine Bacteria Few H None Seen /hpf Urine Mucus Few None Seen Urine Glucose Normal Normal mg/dL White Blood Count 4.5 4.4-10.8 10^3/uL Red Blood Count 4.04 4.0-5.20 10^6/uL Hemoglobin 12.2 12.2-16.2 g/dL Hematocrit 36.2 36.0-46.0 % Mean Corpuscular Volume 89.7 80.0-100.0 fL Mean Corpuscular Hemoglobin 30.1 28.0-32.0 pg Mean Corpuscular Hemoglobin Concent 33.6 32.0-36.0 g/dL Red Cell Distribution Width 13.2 11.8-14.3 % Platelet Count 246 140-450 10^3/uL Mean Platelet Volume 8.5 6.9-10.8 fL Neutrophils (%) (Auto) 49.8 37.0-80.0 % Lymphocytes (%) (Auto) 34.5 10.0-50.0 % Monocytes (%) (Auto) 6.3 0.0-12.0 % Eosinophils (%) (Auto) 8.6 H 0.0-7.0 % Basophils (%) (Auto) 0.8 0.0-2.0 % Neutrophils # (Auto) 2.2 1.6-8.6 10 ^3/uL Lymphocytes # (Auto) 1.5 0.4-5.4 10 ^3/uL Monocytes # (Auto) 0.3 0-1.3 10 ^3/uL Eosinophils # (Auto) 0.4 0-0.8 10 ^3/uL Basophils # (Auto) 0 0-0.2 10 ^3/uL Nucleated Red Blood Cells 0.1 % Sodium Level 140 136-145 mmol/L Potassium Level 3.7 3.5-5.1 mmol/L Chloride Level 106 98-107 mmol/L Carbon Dioxide Level 25 20-31 mmol/L Anion Gap 9 5-15 Blood Urea Nitrogen 15 9-23 mg/dL Creatinine 0.55 0.550-1.02 mg/dL Glomerular Filtration Rate Calc 118 >90 mL/min BUN/Creatinine Ratio 27.3 H 10.0-20.0 Serum Glucose 94 74-106 mg/dL Calcium Level 9.5 8.7-10.4 mg/dL POC Glucose 92 70-106 mg/dl Current Medications Medications (Trade) Dose Ordered Sig/David Route Start Time Stop Time Status Last Admin Sodium Chloride 1,000 ml @ 1,000 mls/hr Q1H ONCE IV 11/03/24 04:45 11/03/24 05:44 DC 11/03/24 05:18 Ondansetron HCl (Zofran) 4 mg ONCE ONCE IV 11/03/24 04:45 11/03/24 04:46 DC 11/03/24 05:17 Famotidine (Pepcid Injection) 20 mg ONCE ONCE IV 11/03/24 04:45 11/03/24 04:46 DC 11/03/24 05:17 Metoclopramide HCl (Reglan Injection) 10 mg ONCE ONCE IV 11/03/24 05:30 11/03/24 05:31 DC 11/03/24 05:56 I took over patient's care from Dr. Ortiz at 6:00 a.m.. At this time we are pending all blood work and also evaluation of the patient after the medications that were ordered for her. This time CBC BMP are within normal limits. Urine with no evidence of infection. Patient has been given Zofran Pepcid Reglan and and 1 L of normal saline in the ER. On my re-evaluation of the patient at 7:30 a.m., she is sleepy but easily awakens and answers questions. She states her dizziness has resolved. Based on her symptoms suspect likely vertigo. I have given her a prescription for meclizine. Advised her to follow up with the PCP in 2-3 days and return to the ER if symptoms worsen or persist. I have advised the patient that we do not check for today and if there was concern that she could be that she should take a home test. Time of 1ST Reevaluation: 04:45 Reevaluation 1ST: Unchanged Patient Education/Counseling: Diagnosis, Treatment Family Education/Counseling: No Family Present Departure 1 Departure Time of Disposition: 07:56 Impression: Primary Impression: Vertigo Disposition: 01 HOME / SELF CARE / HOMELESS Condition: Stable Additional Instructions: Follow up with the primary care physician in 2-3 days. Return to the ER if symptoms worsen or persist. e-Prescriptions Meclizine Hcl (Meclizine Hcl) 12.5 Mg Tab 25 MG PO BIDP PRN, #30 MG Prov: CHERI KRISHNA MD 11/03/24 Discharged With: Self Critical Care Note Critical Care Time?: No Stability Stability form required: No Heart Score Heart Score: Heart Score Response (Comments) Value History N/A 0 EKG N/A 0 Age N/A 0 Risk Factors N/A 0 Troponin N/A 0 Total 0 I personally scribed for HALEY HOOPER MD ([email or web address]) on 11/03/24 at 04:49. Electronically submitted by Jeffry Velasco ([email or web address]). I personally scribed for HALEY HOOPER MD ([email or web address]) on 11/03/24 at 07:56. Electronically submitted by Gabriele Lovelace ([email or web address]). HALEY HOOPER MD Nov 03, 2024 04:49 CHERI KRISHNA MD Nov 03, 2024 07:59
[2024-11-03] MEDS: ONDANSETRON HCL 4 MG/2 ML VIAL IV ONE (05:17)
[2024-11-03] MEDS: FAMOTIDINE (10MG/ML) 2ML VL IV ONE (05:17)
[2024-11-03] MEDS: KETOROLAC TROMETH 30 MG/ML 1ML VIAL IV ONE (05:18)
[2024-11-03] MEDS: SODIUM CHLORIDE 0.9% 1,000 ML IV ONE (05:18)
[2024-11-03 05:29] LABS: Anion Gap 9 (5-15); Carbon Dioxide 25 mmol/L (20-31); Chloride 106 mmol/L (98-107); Potassium 3.7 mmol/L (3.5-5.1); Sodium 140 mmol/L (136-145)
[2024-11-03 05:30] LABS: Basophils # (auto) 0 10 ^3/uL (0-0.2); Basophils % (auto) 0.8 % (0.0-2.0); Calcium 9.5 mg/dL (8.7-10.4); Eosinophils # (auto) 0.4 10 ^3/uL (0-0.8); Eosinophils % (auto) 8.6 % (0.0-7.0); Hematocrit 36.2 % (36.0-46.0); Hemoglobin 12.2 g/dL (12.2-16.2); Lymphocytes # (auto) 1.5 10 ^3/uL (0.4-5.4); Lymphocytes % (auto) 34.5 % (10.0-50.0); Mean Corpuscular Hemoglobin 30.1 pg (28.0-32.0); Mean Corpuscular Hgb Conc. 33.6 g/dL (32.0-36.0); Mean Corpuscular Volume 89.7 fL (80.0-100.0); Monocytes # (auto) 0.3 10 ^3/uL (0-1.3); Monocytes % (auto) 6.3 % (0.0-12.0); Neutrophils # (auto) 2.2 10 ^3/uL (1.6-8.6); Neutrophils % (auto) 49.8 % (37.0-80.0); Nucleated Red Blood Cells % 0.1 %; Platelet Count (auto) 246 10^3/uL (140-450); Red Blood Cells 4.04 10^6/uL (4.0-5.20); Red Cell Distribution Width 13.2 % (11.8-14.3); White Blood Cell 4.5 10^3/uL (4.4-10.8)
[2024-11-03 05:35] LABS: BUN/Creatinine Ratio 27.3 (10.0-20.0); Blood Urea Nitrogen 15 mg/dL (9-23); Glucose 94 mg/dL (74-106)
[2024-11-03] MEDS: METOCLOPRAMIDE HCL 5MG/ml INJ 2ml VIAL IV ONE (05:56)
[2024-11-03 06:26] LABS: Urine Bacteria FEW /hpf (None Seen); Urine Blood TRACE /uL (Negative); Urine Clarity Clear (Clear); Urine Color Yellow (Yellow); Urine Mucus FEW (None Seen); Urine Protein, UAD TRACE (Negative); Urine Specific Gravity 1.031 (1.001-1.035); Urine Squamous Epithelial Cell FEW /hpf (<5); Urine Urobilinogen Normal (Negative); Urine WBC 1 /HPF (0-5)
[2024-11-03 07:26] VITALS: BP 101/63; PULSE 63; RESP 16; TEMP 97.6; O2SAT 99
[2024-11-03] MEDS ORDERED: MECL12.586 PO (07:57)
== END 2024-11-03 08:05 | disposition home or self-care (01) ==
LOC: ER 04:22
DX: R42 Dizziness and giddiness (principal); R11.0 Nausea; Z90.49 Acquired absence of other specified parts of digestive tract; Z98.890 Other specified postprocedural states
CPT/HCPCS: 36415; 80048; 81001; 82962; 85025; 96361; 96374; 96375; 99284; J2405; J2765; J3490; J7030; J1885

== ENCOUNTER 2025-06-12 16:43 | Emergency (ER) | payer MEDICAID ==
[~2025-06-12] VITALS: Ht 165.1 cm; Wt 68.2 kg
[~2025-06-12 16:43] MED LIST changes: +MECL12.586 PO
[2025-06-12 17:35] LABS: Urine Protein, UAD Negative (Negative)
--- NOTE | 2025-06-12 17:40 | ED.PDOC ---
Back pain HPI HPI Comments A 40 YEAR OLD FEMALE PRESENTS TO THE ED WITH COMPLAINT OF LEFT-SIDED LOWER BACK PAIN. PATIENT STATES SHE HAS BEEN EXPERIENCING LEFT-SIDED LOWER BACK PAIN THAT STARTED TODAY AFTER SHE WAS LIFTING SOMETHING FROM THE GROUND. PATIENT REPORTS HER PAIN IS WORSE WITH MOVEMENT. PATIENT DENIES DYSURIA, HEMATURIA, FLANK PAIN, FEVER, CHILLS, SHORTNESS OF BREATH, CHEST PAIN, ABDOMINAL PAIN, NAUSEA, VOMITING, HEADACHE, OR OTHER COMPLAINTS. NO OTHER SYMPTOMS OR MODIFYING FACTORS AT THIS TIME. PATIENT IS ALERT, ORIENTED X 4, AND HAS STEADY GAIT. Chief Complaint: Back Pain Time Seen by MD: 17:37 Primary Care Provider: DARBY Reviewed Notes: Nurses Notes, Medications, Allergies Allergies: Coded Allergies: NO KNOWN ALLERGIES (Unverified , 11/10/23) Home Meds Active Scripts Methocarbamol (Methocarbamol) 750 Mg Tab, 750 MG PO BID, #20 TAB Prov:SIMON LUEVANO 06/12/25 Acetaminophen (Tylenol Extra Strength Fo) 500 Mg Tab, 1000 MG PO BID, #40 TAB Prov:SIMON LUEVANO 06/12/25 Meclizine Hcl (Meclizine Hcl) 12.5 Mg Tab, 25 MG PO BIDP PRN, #30 MG Prov:CHERI KRISHNA MD 11/03/24 Docusate Sodium (Colace) 100 Mg Cap, 1 CAP PO BID, #30 CAP Prov:GIORGIO SINGH NP 07/16/24 Sulfamethoxazole W/Trimethopri (Bactrim Ds Tablet) 1 Tab Tb, 1 TAB PO BID for 5 Days, #10 TAB Prov:GIORGIO SINGH NP 07/16/24 Reported Medications Gabapentin (Gabapentin) 300 Mg Cap, 300 MG PO DAILY, MG 07/12/24 Cyanocobalamin (Vitamin B-12) 1,000 Mcg Tab, 1000 MCG PO DAILY, TAB 07/12/24 Cholecalciferol (D-5000) 5,000 Unit Tab, 5000 UNIT PO DAILY, TAB 07/12/24 Information Source: Patient Mode of Arrival: Ambulatory Timing: Hours Duration: Since onset, Hours Location of Back pain: (L) Lumbar Severity: Moderate Prehospital treatment: None Quality: Aching, Cramping Onset: Spontaneous History of: None Modifying Factors: Movement Associated signs and symptoms: None Past Medical History PAST MEDICAL HISTORY: Denies Surgical History: Cholecystectomy, ROCK CRUSHER History: No Pertinent ROCK CRUSHER History Family History Family History: Reviewed,noncontributory to illness Social History Smoker: Non-Smoker Alcohol: Denies ETOH Use Drugs: Denies Drug Use Lives In: Home Constitutional: denies: chills, diaphoresis, fatigue, fever, malaise, sweats, weakness, others EENTM: denies: blurred vision, double vision, ear bleeding, ear discharge, ear drainage, ear pain, ear ringing, eye pain, eye redness, hearing loss, mouth pain, mouth swelling, nasal discharge, nose bleeding, nose congestion, nose pain, photophobia, tearing, throat pain, throat swelling, voice changes, others Respiratory: denies: cough, hemoptysis, orthopnea, SOB at rest, shortness of breath, SOB with excertion, stridor, wheezing, others Cardiovascular: denies: chest pain, dizzy spells, diaphoresis, Dyspnea on exertion, edema, irregular heart beat, left arm pain, lightheadedness, palpitations, PND, syncope, others Gastrointestinal: denies: abdomen distended, abdominal pain, blood streaked bowels, constipated, diarrhea, dysphagia, difficulty swallowing, hematemesis, melena, nausea, poor appetite, poor fluid intake, rectal bleeding, rectal pain, vomiting, others Genitourinary: denies: abnormal vagina bleeding, burning, dyspareunia, dysuria, flank pain, frequency, hematuria, incontinence, pain, , vagina discharge, urgency, others Neurological: denies: dizziness, fainting, headache, left sided numbness, left sided weakness, numbness, paresthesia, pre-existing deficit, right sided numbness, right sided weakness, seizure, speech problems, tingling, tremors, weakness, others Musculoskeletal: reports: back pain (LEFT-SIDED LOWER BACK PAIN), muscle pain; denies: gout, joint pain, joint swelling, muscle stiffness, neck pain, others Integumetry: denies: bruises, change in color, change in hair/nails, dryness, laceration, lesions, lumps, rash, wounds, others Allergic/Immunocompromised: denies: Difficulty Healing, Frequent Infections, Hives, Itching, others Hematologic/Lymphatic: denies: anemia, blood clots, easy bleeding, easy bruising, swollen glands, others Endocrine: denies: excessive hunger, excessive sweating, excessive thirst, excessive urination, flushing, intolerance to cold, intolerance to heat, unexplained weight gain, unexplained weight loss, others Psychiatric: denies: anxiety, bipolar disorder, depression, hopeless, panic disorder, schizophrenia, sleepless, suicidal, others All Other Systems: Reviewed and Negative Physical Exam General Appearance: No Apparent Distress, Normal HEENT: Normal ENT Inspection, PERRL/EOMI, Pharynx Normal, TMs Normal Neck: Full Range of Motion, Non-Tender, Normal, Normal Inspection Respiratory: Chest Non-Tender, Lungs Clear, No Accessory Muscle Use, No Respiratory Distress, Normal Breath Sounds Cardiovascular: No Edema, No JVD, No Murmur, No Gallop, Normal Peripheral Pulses, Regular Rate/Rhythm Breast Exam: Deferred Gastrointestinal: No Organomegaly, Non Tender, No Pulsatile Mass, Normal Bowel Sounds, Soft Genitalia: Deferred Pelvic: Deferred Rectal: Deferred Extremities: No calf tenderness, Normal capillary refill, Normal inspection, Normal range of motion, Non-tender, No pedal edema Musculoskeletal : Location: Left Extremity Location: Back Apperance: Tenderness (AND MUSCLE SPASM ON LEFT LOWER BACK, NO BONY TENDERNESS, SWELLING AND DEFORMITY. ) Neurologic: Alert, commissioned sales associate II-XII nml as Tested, No Motor Deficits, Normal Affect, Normal Mood, No Sensory Deficits Cerebellar Function: Normal Reflexes: Normal Skin: Dry, Normal Color, Warm Peripheral Pulses: 2+ carotid (R), 2+ carotid (L), 2+ dorsalis pedis (R), 2+ dorsalis pedis (L) Lymphatic: No Adenopathy Was a procedure done? Was a procedure done?: No Back Pain Differential Dx Differential Diagnosis: Musculoskeletal Pain, Strain Other Differential Diagnosis UTI, ACUTE CYSTITIS X-Ray, Labs, Meds, VS Vital Signs Date Time Temp Pulse Resp B/P (MAP) Pulse Ox O2 Delivery O2 Flow Rate FiO2 06/12/25 17:57 67 18 96 Room Air 06/12/25 17:57 97.8 67 18 102/57 (72) 96 97.8 06/12/25 16:44 97.8 67 18 102/57 96 97.8 Lab Test 06/12/25 16:30 Range/Units Urine Color Colorless Yellow Urine Clarity Clear Clear Urine pH 7.0 5.0-9.0 Urine Specific [place] 1.003 1.001-1.035 Urine Protein Negative Negative Urine Ketones Negative Negative Urine Blood Negative Negative /uL Urine Nitrite Negative Negative Urine Bilirubin Negative Negative Urine Urobilinogen Normal Negative mg/dL Urine Leukocyte Esterase Negative Negative /uL Urine RBC None seen 0 - 4 /hpf Urine Microscopic WBC < 1 0-5 /HPF Urine Squamous Epithelial Cells Few <5 /hpf Urine Bacteria Few H None Seen /hpf Urine Glucose Normal Normal mg/dL Current Medications Medications (Trade) Dose Ordered Sig/David Route Start Time Stop Time Status Last Admin Ketorolac Tromethamine (Toradol Injection) 60 mg ONCE ONCE IM 06/12/25 17:45 06/12/25 17:46 DC 06/12/25 17:55 Acetaminophen/ Hydrocodone Bitart ([place]rett 5/325MG Tab) 1 tab ONCE ONCE PO 06/12/25 17:45 06/12/25 17:46 DC 06/12/25 17:55 X-Ray, Labs, Meds, VS Comment EXTERNAL MEDICAL RECORDS REVIEWED: [NONE] INDEPENDENT HISTORIANS: [NONE] SOCIAL DETERMINANTS OF HEALTH: [NONE] LABS ORDERED: UA REVIEWED AND INTERPRETED RESULTS: NORMAL IMAGING ORDERED: NONE TREATMENTS ORDERED: TORADOL 60 MG IM PROCEDURES PERFORMED: NONE CRITICAL CARE TIME: NONE I HAVE DISCUSSED THE PATIENT WITH THE ATTENDING PHYSICIAN DR. HOOPER AND HE AGREES WITH THE PATIENT'S PLAN OF CARE AND DISPOSITION. BASED ON HISTORY OF PRESENT ILLNESS, AND PHYSICAL EXAM, PATIENT WILL BE DISCHARGED HOME. DISCUSSED PLAN FOR DISCHARGE HOME WITH RX [IBUPROFEN 800 MG AND ROBAXIN]. MEDICATION WARNINGS GIVEN. SHARED DECISION MAKING: DISCUSSED WITH PATIENT THAT THEIR WORKUP WAS NORMAL. PATIENT INSTRUCTED TO FOLLOW UP WITH PRIMARY CARE PROVIDER IN 1-2 DAYS FOR RE- EVALUATION OF SYMPTOMS. PATIENT VERBALIZES UNDERSTANDING TO RETURN TO ED FOR NEW OR WORSENING SYMPTOMS OR IF FOLLOW UP WITH PCP CANNOT BE OBTAINED. PATIENT FEELS COMFORTABLE GOING HOME AT THIS TIME. ALL QUESTIONS ADDRESSED AT TIME OF DISCHARGE. Time of 1ST Reevaluation: 18:00 Reevaluation 1ST: Improved Patient Education/Counseling: Diagnosis, Treatment, Need For Follow Up Family Education/Counseling: Diagnosis, Treatment, Need For Follow Up Medical Screening: No EMC Exist At This Time SEPSIS Sepsis Screen Date sepsis recognized/suspect: Jun 12, 2025 Time Sepsis recognized/suspect: 1644 Recent Procedure: No On Antibiotic Therapy: No Respiratory Rate >20: No Heart Rate >90: No Temp<36 C (96.8 F) or >38.3 C: No SBP <90 or MAP <65 mmHG: No New Acute Mental Status Change: No Is the patient on CPAP, BIPAP,: No Vital Signs Date Time Temp Pulse Resp B/P (MAP) Pulse Ox O2 Delivery O2 Flow Rate FiO2 06/12/25 17:57 67 18 96 Room Air 06/12/25 17:57 97.8 67 18 102/57 (72) 96 97.8 06/12/25 16:44 97.8 67 18 102/57 96 97.8 Medications Medications Dose Ordered Sig/David Route Start Time Stop Time Status Last Admin Dose Admin Acetaminophen/ Hydrocodone Bitart 1 tab ONCE ONCE PO 06/12/25 17:45 06/12/25 17:46 DC 06/12/25 17:55 Ketorolac Tromethamine 60 mg ONCE ONCE IM 06/12/25 17:45 06/12/25 17:46 DC 06/12/25 17:55 Departure 1 Departure Time of Disposition: 18:00 Impression: Primary Impression: Low back strain Qualified Codes: S39.012A - Strain of muscle, fascia and tendon of lower back, initial encounter Disposition: HOME / SELF CARE / HOMELESS Condition: Stable Additional Instructions: FOLLOW-UP WITH PCP IN 1 TO 2 DAYS. TAKE MEDICATIONS PRESCRIBED. RETURN TO ED FOR ANY NEW OR WORSENING SYMPTOMS. e-Prescriptions Methocarbamol (Methocarbamol) 750 Mg Tab 750 MG PO BID, #20 TAB Prov: SIMON LUEVANO 06/12/25 Acetaminophen (Tylenol Extra Strength Fo) 500 Mg Tab 1000 MG PO BID, #40 TAB Prov: SIMON LUEVANO 06/12/25 Discharged With: Self, Spouse Critical Care Note Critical Care Time?: No Stability Stability form required: No I personally scribed for SIMON LUEVANO ([email or web address]) on 06/12/25 at 17:40. Electronically submitted by Sd Griffin ([email or web address]). SIMON LUEVANO Jun 12, 2025 17:40
[2025-06-12] MEDS: KETOROLAC TROMETH 60MG/2ML VIAL IM ONE (17:55)
[2025-06-12] MEDS: HYDROcodone-ACET 5/325MG TAB PO ONE (17:55)
[2025-06-12 17:57] VITALS: BP 102/57; PULSE 67; RESP 18; TEMP 97.8; O2SAT 96
[2025-06-12] MEDS ORDERED: ACET-1304 PO (17:59)
[2025-06-12] MEDS ORDERED: METH-1182 PO (17:59)
== END 2025-06-12 18:08 | disposition home or self-care (01) ==
LOC: ER 16:43
DX: S39.012A Strain of muscle, fascia and tendon of lower back, initial encounter (principal); Z79.899 Other long term (current) drug therapy; Z90.49 Acquired absence of other specified parts of digestive tract; Z98.890 Other specified postprocedural states; X58.XXXA Exposure to other specified factors, initial encounter; Y93.89 Activity, other specified; Y92.89 Other specified places as the place of occurrence of the external cause; Y99.8 Other external cause status
CPT/HCPCS: 81001; 96372; 99283; J1885